=== PATIENT | male | born 1960 | race Caucasian/White ===

== ENCOUNTER 2017-05-27 11:53 | Day surgery (SDC) | payer OTHER ==
[2017-05-27] MEDS ORDERED: PROPOFOL 20 ML ×2 (13:01→13:55)
[2017-05-27] MEDS ORDERED: ATROPINE 1 MG/10 ML SYRINGE ×2 (15:44)
== END 2017-05-27 14:42 | disposition home or self-care (01) ==
LOC: GIL 11:53
DX: D12.5 Benign neoplasm of sigmoid colon (principal); K64.8 Other hemorrhoids; I10 Essential (primary) hypertension; E78.5 Hyperlipidemia, unspecified
CPT/HCPCS: 45380; 88305

== ENCOUNTER 2017-07-29 05:20 | Inpatient (IN) | payer OTHER ==
[2017-07-29] MEDS: CEFAZOLIN 2 GM/50 ML (PMX) 50 ML IVPB (06:00)
[2017-07-29] MEDS: SOD CHLORIDE 0.9% 1,000 ML IV ×3 (06:00→22:27)
[2017-07-29] MEDS: hydrALAzine 20 MG INJ IV (06:39)
[2017-07-29] MEDS ORDERED: SUCCINYLCHOLINE CHLORIDE 100 MG/5 ML SYG IV (07:00)
[2017-07-29] MEDS ORDERED: CEFAZOLIN 1 GM INJ (07:00)
[2017-07-29 07:02] LABS: ADD MAN DIFF? NO
[2017-07-29 07:08] LABS: WHITE BLOOD COUNT 5.3 10^3/ul (4.8-10.8)
[2017-07-29 07:08] LABS: BASOPHILS % 0.4 % (0.0-2.0); EOSINOPHILS # 0.3 10^3/ul (0.0-0.5); EOSINOPHILS % 5.3 % (0.0-7.0); HEMATOCRIT 37.7 % (42.0-52.0); HEMOGLOBIN 13.1 g/dl (14.0-18.0); LYMPHOCYTES # 0.8 10^3/ul (0.8-2.9); LYMPHOCYTES % 15.2 % (15.0-51.0); MEAN CORPUSCULAR HEMOGLOBIN 30.5 pg (29.0-33.0); MEAN CORPUSCULAR HGB CONC 34.7 g/dl (32.0-37.0); MEAN CORPUSCULAR VOLUME 87.7 fl (82.0-101.0); MEAN PLATELET VOLUME 11.7 fl (7.4-10.4); MONOCYTE # 0.5 10^3/ul (0.3-0.9); MONOCYTES % 9.3 % (0.0-11.0); NEUTROPHIL # 3.6 10^3/ul (1.6-7.5); NEUTROPHILS % 68.9 % (39.0-77.0); PLATELET COUNT 190 10^3/UL (140-415); RED CELL DISTRIBUTION WIDTH 12.4 % (11.5-14.5)
[2017-07-29 07:12] LABS: PROTIME 13.3 Sec (11.9-14.9)
[2017-07-29] MEDS ORDERED: BUPIVACAINE 0.25% (MPF) 30 ML INJ (07:12)
[2017-07-29 07:13] LABS: PARTIAL THROMBOPLASTIN TIME 33.7 Sec (25.0-35.0)
[2017-07-29 07:15] LABS: ALANINE AMINOTRANSFERASE 29 IU/L (13-69); ALBUMIN/GLOBULIN RATIO 1.25; ALKALINE PHOSPHATASE 94 IU/L (42-121); ANION GAP 17 (8-16); ASPARTATE AMINO TRANSFERASE 22 IU/L (15-46); BILIRUBIN,INDIRECT 0.4 mg/dl (0-1.1); BILIRUBIN,TOTAL 0.4 mg/dl (0.2-1.3); CARBON DIOXIDE 28 mmol/L (21-31); CHLORIDE 108 mmol/L (97-110); GLUCOSE 90 mg/dl (70-220); TOTAL PROTEIN 7.2 g/dl (6.1-8.1)
[2017-07-29 07:23] LABS: BLOOD UREA NITROGEN 12 mg/dl (7-20); CREATININE 1.05 mg/dl (0.61-1.24); POTASSIUM 3.8 mmol/L (3.5-5.1); SODIUM 149 mmol/L (135-144)
[2017-07-29] MEDS ORDERED: MIDAZOLAM 1 MG/ML 2 ML INJ ×2 (08:03)
[2017-07-29] MEDS ORDERED: FENTAnyl 50 MCG/ML VIAL (08:03)
[2017-07-29] MEDS ORDERED: PROPOFOL 20 ML (08:03)
[2017-07-29] MEDS ORDERED: ROCURONIUM 50 MG INJ (08:03)
[2017-07-29] MEDS ORDERED: ROPIVACAINE 0.5 % 30 ML VIAL (08:04)
[2017-07-29] MEDS ORDERED: hydrALAzine 20 MG INJ ×2 (08:07→09:15)
[2017-07-29] MEDS ORDERED: ROPIVACAINE 0.2% 20 ML VIAL ×2 (08:20→11:09)
[2017-07-29] MEDS ORDERED: LABETALOL HCL 20MG INJ (09:15)
[2017-07-29] MEDS ORDERED: morphine SULFATE/PF (10 MG/10 ML) INJ (09:44)
[2017-07-29] MEDS ORDERED: NALBUPHINE HCL (10 MG/1 ML) INJ IV (10:00)
[2017-07-29] MEDS ORDERED: EPHEDrine SULFATE 50 MG/5 ML SYG IV (10:00)
[2017-07-29] MEDS ORDERED: ONDANSETRON 4 MG INJ IV (10:00)
[2017-07-29] MEDS ORDERED: LABETALOL HCL 20MG INJ IV (10:00)
[2017-07-29] MEDS ORDERED: hydrALAzine 20 MG INJ IV (10:00)
[2017-07-29] MEDS ORDERED: METOCLOPRAMIDE 10 MG INJ IV (10:00)
[2017-07-29] MEDS ORDERED: HYDROmorphONE (0.2 MG/ML) 10ML SYG IV ×3 (10:00)
[2017-07-29] MEDS ORDERED: HYDROmorphONE 0.5 MG/0.5 ML SYG IV (10:00)
[2017-07-29] MEDS ORDERED: MEPERIDINE 25 MG INJ IV (10:00)
[2017-07-29] MEDS ORDERED: morphine 2 MG INJ IV ×2 (10:00)
[2017-07-29] MEDS ORDERED: NALOXONE (0.4 MG/ML) INJ IV ×2 (10:00→15:30)
[2017-07-29] MEDS ORDERED: FENTAnyl 50 MCG/ML VIAL IV ×3 (10:00)
[2017-07-29] MEDS ORDERED: DIPHENHYDRAMINE 50 MG INJ IV ×2 (10:00)
[2017-07-29] MEDS ORDERED: PHENYLephrine (100 MCG/ML) 5ML SYG ×2 (10:02→10:15)
[2017-07-29] MEDS ORDERED: HETASTARCH 6% NACL 500 ML (10:03)
[2017-07-29] MEDS ORDERED: METHYLENE BLUE 1% 10 ML INJ (10:21)
[2017-07-29] MEDS ORDERED: CIPROFLOXACIN 400MG/D5W 200 ML (11:36)
[2017-07-29] MEDS ORDERED: metroNIDAZOLE 500 MG/NS (PMX) 100 ML IVPB (11:36)
[2017-07-29] MEDS ORDERED: DEXAMETHASONE 4 MG/ML 1 ML INJ (12:08)
[2017-07-29] MEDS ORDERED: ONDANSETRON 4 MG INJ (12:08)
[2017-07-29] MEDS ORDERED: SUGAMMADEX SODIUM 200 MG/2 ML VIAL IV (12:08)
[2017-07-29] MEDS ORDERED: METOCLOPRAMIDE 10 MG INJ (12:08)
[2017-07-29] MEDS: metroNIDAZOLE 500 MG/NS (PMX) 100 ML IVPB ×2 (13:42→20:42)
[2017-07-29] MEDS: CIPROFLOXACIN 400MG/D5W 200 ML IVPB (13:42)
[2017-07-29] MEDS: HEPARIN 5,000 UNIT/0.5 ML VIAL SC ×2 (14:00→22:00)
[2017-07-29] MEDS: FENTAnyl 2MCG/ML-ROPIV 0.2% 100 ML BAG EPI (14:21)
[2017-07-29 14:37] LABS: ADD MAN DIFF? NO
[2017-07-29 14:45] LABS: WHITE BLOOD COUNT 11.5 10^3/ul (4.8-10.8)
[2017-07-29 14:45] LABS: BASOPHILS % 0.3 % (0.0-2.0); EOSINOPHILS % 0.3 % (0.0-7.0); HEMATOCRIT 38.6 % (42.0-52.0); HEMOGLOBIN 13.3 g/dl (14.0-18.0); LYMPHOCYTES # 0.8 10^3/ul (0.8-2.9); LYMPHOCYTES % 7.2 % (15.0-51.0); MEAN CORPUSCULAR HEMOGLOBIN 30.7 pg (29.0-33.0); MEAN CORPUSCULAR HGB CONC 34.5 g/dl (32.0-37.0); MEAN CORPUSCULAR VOLUME 89.1 fl (82.0-101.0); MEAN PLATELET VOLUME 10.9 fl (7.4-10.4); MONOCYTE # 0.4 10^3/ul (0.3-0.9); NEUTROPHIL # 10.2 10^3/ul (1.6-7.5); NEUTROPHILS % 88.9 % (39.0-77.0); PLATELET COUNT 237 10^3/UL (140-415); RED BLOOD COUNT 4.33 10^6/ul (4.70-6.10); RED CELL DISTRIBUTION WIDTH 12.6 % (11.5-14.5)
[2017-07-29 14:58] LABS: ALANINE AMINOTRANSFERASE 34 IU/L (13-69); ALBUMIN 2.9 g/dl (3.3-4.9); ALBUMIN/GLOBULIN RATIO 1.03; ALKALINE PHOSPHATASE 78 IU/L (42-121); ANION GAP 15 (8-16); ASPARTATE AMINO TRANSFERASE 18 IU/L (15-46); BILIRUBIN,INDIRECT 0.2 mg/dl (0-1.1); BILIRUBIN,TOTAL 0.2 mg/dl (0.2-1.3); CARBON DIOXIDE 22 mmol/L (21-31); CHLORIDE 108 mmol/L (97-110); GLUCOSE 255 mg/dl (70-220); TOTAL PROTEIN 5.7 g/dl (6.1-8.1)
[2017-07-29 14:59] LABS: BLOOD UREA NITROGEN 11 mg/dl (7-20); CALCIUM 7.4 mg/dl (8.4-10.2); CREATININE 0.94 mg/dl (0.61-1.24); POTASSIUM 3.8 mmol/L (3.5-5.1); SODIUM 141 mmol/L (135-144)
[2017-07-29] MEDS: ONDANSETRON 4 MG INJ IV (17:54)
[2017-07-30] MEDS: CIPROFLOXACIN 400MG/D5W 200 ML IVPB (01:14)
[2017-07-30] MEDS: FENTAnyl 2MCG/ML-ROPIV 0.2% 100 ML BAG EPI ×3 (02:33→19:50)
[2017-07-30] MEDS: metroNIDAZOLE 500 MG/NS (PMX) 100 ML IVPB (04:40)
[2017-07-30 05:36] LABS: ADD MAN DIFF? NO
[2017-07-30 05:44] LABS: ABNORMAL IP MESSAGE 1; BASOPHILS % 0.1 % (0.0-2.0); HEMATOCRIT 34.2 % (42.0-52.0); HEMOGLOBIN 11.7 g/dl (14.0-18.0); LYMPHOCYTES # 0.4 10^3/ul (0.8-2.9); LYMPHOCYTES % 2.7 % (15.0-51.0); MEAN CORPUSCULAR HEMOGLOBIN 30.6 pg (29.0-33.0); MEAN CORPUSCULAR HGB CONC 34.2 g/dl (32.0-37.0); MEAN CORPUSCULAR VOLUME 89.5 fl (82.0-101.0); MEAN PLATELET VOLUME 11.8 fl (7.4-10.4); MONOCYTE # 0.6 10^3/ul (0.3-0.9); MONOCYTES % 4.2 % (0.0-11.0); NEUTROPHIL # 13.2 10^3/ul (1.6-7.5); NEUTROPHILS % 92.8 % (39.0-77.0); PLATELET COUNT 189 10^3/UL (140-415); POSITIVE DIFF @See below; RED BLOOD COUNT 3.82 10^6/ul (4.70-6.10); RED CELL DISTRIBUTION WIDTH 13.2 % (11.5-14.5)
[2017-07-30 05:44] LABS: WHITE BLOOD COUNT 14.2 10^3/ul (4.8-10.8)
[2017-07-30] MEDS: SOD CHLORIDE 0.9% 1,000 ML IV ×2 (06:03→18:50)
[2017-07-30 06:18] LABS: ALANINE AMINOTRANSFERASE 24 IU/L (13-69); ALBUMIN 2.9 g/dl (3.3-4.9); ALKALINE PHOSPHATASE 55 IU/L (42-121); ANION GAP 17 (8-16); ASPARTATE AMINO TRANSFERASE 27 IU/L (15-46); BILIRUBIN,INDIRECT 0.3 mg/dl (0-1.1); BILIRUBIN,TOTAL 0.3 mg/dl (0.2-1.3); BLOOD UREA NITROGEN 21 mg/dl (7-20); CALCIUM 8.1 mg/dl (8.4-10.2); CARBON DIOXIDE 22 mmol/L (21-31); CHLORIDE 110 mmol/L (97-110); CREATININE 1.42 mg/dl (0.61-1.24); GLUCOSE 123 mg/dl (70-220); POTASSIUM 4.3 mmol/L (3.5-5.1); SODIUM 145 mmol/L (135-144); TOTAL PROTEIN 5.3 g/dl (6.1-8.1)
[2017-07-30] MEDS: PIPER-TAZO 3.375 GM IV (PMX) 100 ML IVPB ×3 (09:54→22:22)
[2017-07-30] MEDS: HYDROmorphONE 0.5 MG/0.5 ML SYG IV ×2 (11:39→18:50)
[2017-07-30] MEDS: hydrALAzine 20 MG INJ IV (19:01)
[2017-07-31] MEDS: SOD CHLORIDE 0.9% 1,000 ML IV ×2 (04:12→14:50)
[2017-07-31] MEDS: FENTAnyl 2MCG/ML-ROPIV 0.2% 100 ML BAG EPI ×3 (04:13→21:35)
[2017-07-31 05:12] LABS: ADD MAN DIFF? NO
[2017-07-31 05:19] LABS: WHITE BLOOD COUNT 12.3 10^3/ul (4.8-10.8)
[2017-07-31 05:19] LABS: ABNORMAL IP MESSAGE 1; BASOPHILS % 0.2 % (0.0-2.0); HEMATOCRIT 31.2 % (42.0-52.0); HEMOGLOBIN 10.5 g/dl (14.0-18.0); LYMPHOCYTES # 0.5 10^3/ul (0.8-2.9); MEAN CORPUSCULAR HEMOGLOBIN 30.5 pg (29.0-33.0); MEAN CORPUSCULAR HGB CONC 33.7 g/dl (32.0-37.0); MEAN CORPUSCULAR VOLUME 90.7 fl (82.0-101.0); MEAN PLATELET VOLUME 11.7 fl (7.4-10.4); MONOCYTE # 0.3 10^3/ul (0.3-0.9); MONOCYTES % 2.5 % (0.0-11.0); NEUTROPHIL # 11.4 10^3/ul (1.6-7.5); PLATELET COUNT 149 10^3/UL (140-415); POSITIVE DIFF @See below; RED BLOOD COUNT 3.44 10^6/ul (4.70-6.10); RED CELL DISTRIBUTION WIDTH 13.3 % (11.5-14.5)
[2017-07-31 05:54] LABS: ANION GAP 15 (8-16); BLOOD UREA NITROGEN 19 mg/dl (7-20); CALCIUM 8.6 mg/dl (8.4-10.2); CARBON DIOXIDE 24 mmol/L (21-31); CHLORIDE 112 mmol/L (97-110); CREATININE 1.15 mg/dl (0.61-1.24); GLUCOSE 101 mg/dl (70-220); POTASSIUM 3.8 mmol/L (3.5-5.1); SODIUM 147 mmol/L (135-144)
[2017-07-31] MEDS: PIPER-TAZO 3.375 GM IV (PMX) 100 ML IVPB ×3 (06:24→21:28)
[2017-07-31] MEDS: hydrALAzine 20 MG INJ IV ×3 (08:36→18:23)
[2017-07-31] MEDS: HYDROmorphONE 0.5 MG/0.5 ML SYG IV (14:51)
[2017-07-31] MEDS: CLONIDINE 0.1 MG/24 HR PATCH TRANSDERM (18:24)
[2017-08-01] MEDS: SOD CHLORIDE 0.9% 1,000 ML IV ×2 (01:54→11:54)
[2017-08-01] MEDS: hydrALAzine 20 MG INJ IV ×5 (01:54→20:13)
[2017-08-01] MEDS: PIPER-TAZO 3.375 GM IV (PMX) 100 ML IVPB ×3 (05:17→21:37)
[2017-08-01] MEDS: FENTAnyl 2MCG/ML-ROPIV 0.2% 100 ML BAG EPI ×3 (06:33→23:56)
[2017-08-01] MEDS: CLONIDINE 0.2 MG/24 HR PATCH TRANSDERM (14:28)
[2017-08-01] MEDS: 1/2 NS + KCL 20 MEQ 1,000 ML IV (18:14)
[2017-08-02] MEDS: hydrALAzine 20 MG INJ IV ×4 (00:16→20:27)
[2017-08-02] MEDS ORDERED: ENALAPRILAT 1.25 MG INJ IV (01:30)
[2017-08-02] MEDS: ENALAPRILAT 1.25 MG INJ IV ×4 (03:10→12:12)
[2017-08-02] MEDS: 1/2 NS + KCL 20 MEQ 1,000 ML IV ×2 (03:23→05:27)
[2017-08-02] MEDS: PIPER-TAZO 3.375 GM IV (PMX) 100 ML IVPB (05:19)
[2017-08-02] MEDS ORDERED: ALBUTEROL/IPRATROPIUM (NEB) 3 ML AMP HHN (06:30)
[2017-08-02 06:48] LABS: ADD MAN DIFF? NO
[2017-08-02 06:53] LABS: WHITE BLOOD COUNT 8.4 10^3/ul (4.8-10.8)
[2017-08-02 06:53] LABS: ABNORMAL IP MESSAGE 1; BASOPHILS % 0.2 % (0.0-2.0); EOSINOPHILS # 0.2 10^3/ul (0.0-0.5); EOSINOPHILS % 2.3 % (0.0-7.0); HEMATOCRIT 32.2 % (42.0-52.0); HEMOGLOBIN 10.9 g/dl (14.0-18.0); LYMPHOCYTES # 0.4 10^3/ul (0.8-2.9); LYMPHOCYTES % 4.5 % (15.0-51.0); MEAN CORPUSCULAR HEMOGLOBIN 30.7 pg (29.0-33.0); MEAN CORPUSCULAR HGB CONC 33.9 g/dl (32.0-37.0); MEAN CORPUSCULAR VOLUME 90.7 fl (82.0-101.0); MEAN PLATELET VOLUME 10.8 fl (7.4-10.4); MONOCYTE # 0.4 10^3/ul (0.3-0.9); NEUTROPHIL # 7.4 10^3/ul (1.6-7.5); NEUTROPHILS % 87.4 % (39.0-77.0); PLATELET COUNT 192 10^3/UL (140-415); POSITIVE DIFF @See below; RED BLOOD COUNT 3.55 10^6/ul (4.70-6.10); RED CELL DISTRIBUTION WIDTH 13.3 % (11.5-14.5)
[2017-08-02 07:24] LABS: ANION GAP 14 (8-16); BLOOD UREA NITROGEN 18 mg/dl (7-20); CALCIUM 8.4 mg/dl (8.4-10.2); CARBON DIOXIDE 23 mmol/L (21-31); CHLORIDE 116 mmol/L (97-110); CREATININE 0.92 mg/dl (0.61-1.24); GLUCOSE 76 mg/dl (70-220); POTASSIUM 3.3 mmol/L (3.5-5.1); SODIUM 150 mmol/L (135-144)
[2017-08-02] MEDS: FENTAnyl 2MCG/ML-ROPIV 0.2% 100 ML BAG EPI ×2 (08:18→17:08)
[2017-08-02] MEDS: POTASSIUM CHLORIDE 100 ML IVPB (18:11)
[2017-08-02] MEDS: D5W + KCL 20 MEQ 1,000 ML IV (18:11)
[2017-08-02] MEDS: CLONIDINE 0.3 MG/24 HR PATCH TRANSDERM (18:49)
[2017-08-03] MEDS: FENTAnyl 2MCG/ML-ROPIV 0.2% 100 ML BAG EPI ×2 (02:24→11:33)
[2017-08-03] MEDS: hydrALAzine 20 MG INJ IV ×3 (02:29→21:12)
[2017-08-03] MEDS: ENALAPRILAT 1.25 MG INJ IV (05:23)
[2017-08-03] MEDS: D5W + KCL 20 MEQ 1,000 ML IV ×2 (08:18→11:40)
[2017-08-03 09:20] LABS: ADD MAN DIFF? NO
[2017-08-03 09:25] LABS: ABNORMAL IP MESSAGE 1; BASOPHILS % 0.4 % (0.0-2.0); EOSINOPHILS # 0.3 10^3/ul (0.0-0.5); EOSINOPHILS % 3.8 % (0.0-7.0); HEMATOCRIT 30.4 % (42.0-52.0); HEMOGLOBIN 10.4 g/dl (14.0-18.0); LYMPHOCYTES # 0.5 10^3/ul (0.8-2.9); LYMPHOCYTES % 6.1 % (15.0-51.0); MEAN CORPUSCULAR HEMOGLOBIN 30.7 pg (29.0-33.0); MEAN CORPUSCULAR HGB CONC 34.2 g/dl (32.0-37.0); MEAN CORPUSCULAR VOLUME 89.7 fl (82.0-101.0); MEAN PLATELET VOLUME 11.2 fl (7.4-10.4); MONOCYTE # 0.6 10^3/ul (0.3-0.9); MONOCYTES % 7.7 % (0.0-11.0); NEUTROPHIL # 6.2 10^3/ul (1.6-7.5); PLATELET COUNT 186 10^3/UL (140-415); POSITIVE DIFF @See below; RED BLOOD COUNT 3.39 10^6/ul (4.70-6.10); RED CELL DISTRIBUTION WIDTH 13.2 % (11.5-14.5)
[2017-08-03 09:25] LABS: WHITE BLOOD COUNT 7.7 10^3/ul (4.8-10.8)
[2017-08-03 09:52] LABS: ANION GAP 13 (8-16); BLOOD UREA NITROGEN 14 mg/dl (7-20); CALCIUM 8.2 mg/dl (8.4-10.2); CARBON DIOXIDE 25 mmol/L (21-31); CHLORIDE 109 mmol/L (97-110); CREATININE 0.82 mg/dl (0.61-1.24); GLUCOSE 106 mg/dl (70-220); POTASSIUM 3.5 mmol/L (3.5-5.1); SODIUM 143 mmol/L (135-144)
[2017-08-03] MEDS: METOPROLOL 25 MG TAB NGT (21:12)
[2017-08-04 05:16] LABS: ADD MAN DIFF? NO
[2017-08-04 05:19] LABS: WHITE BLOOD COUNT 6.9 10^3/ul (4.8-10.8)
[2017-08-04 05:19] LABS: BASOPHILS % 0.3 % (0.0-2.0); EOSINOPHILS # 0.3 10^3/ul (0.0-0.5); EOSINOPHILS % 4.2 % (0.0-7.0); HEMATOCRIT 29.8 % (42.0-52.0); HEMOGLOBIN 10.5 g/dl (14.0-18.0); LYMPHOCYTES # 0.7 10^3/ul (0.8-2.9); LYMPHOCYTES % 9.4 % (15.0-51.0); MEAN CORPUSCULAR HEMOGLOBIN 30.7 pg (29.0-33.0); MEAN CORPUSCULAR HGB CONC 35.2 g/dl (32.0-37.0); MEAN CORPUSCULAR VOLUME 87.1 fl (82.0-101.0); MEAN PLATELET VOLUME 10.7 fl (7.4-10.4); MONOCYTE # 0.5 10^3/ul (0.3-0.9); NEUTROPHIL # 5.3 10^3/ul (1.6-7.5); NEUTROPHILS % 77.4 % (39.0-77.0); PLATELET COUNT 192 10^3/UL (140-415); RED BLOOD COUNT 3.42 10^6/ul (4.70-6.10); RED CELL DISTRIBUTION WIDTH 12.7 % (11.5-14.5)
[2017-08-04 05:45] LABS: ANION GAP 12 (8-16); BLOOD UREA NITROGEN 12 mg/dl (7-20); CALCIUM 8.3 mg/dl (8.4-10.2); CARBON DIOXIDE 26 mmol/L (21-31); CHLORIDE 107 mmol/L (97-110); GLUCOSE 103 mg/dl (70-220); POTASSIUM 3.5 mmol/L (3.5-5.1); SODIUM 141 mmol/L (135-144)
[2017-08-04] MEDS: LOSARTAN 50 MG TAB PO (08:29)
[2017-08-04] MEDS: METOPROLOL 25 MG TAB NGT (08:29)
[2017-08-04] MEDS: NIFEdipine (XL) 60 MG TAB PO (21:04)
[2017-08-04] MEDS: morphine 2 MG INJ IV (21:04)
[2017-08-05 05:16] LABS: ADD MAN DIFF? NO
[2017-08-05 05:25] LABS: WHITE BLOOD COUNT 6.1 10^3/ul (4.8-10.8)
[2017-08-05 05:25] LABS: BASOPHILS % 0.3 % (0.0-2.0); EOSINOPHILS # 0.2 10^3/ul (0.0-0.5); EOSINOPHILS % 3.6 % (0.0-7.0); HEMATOCRIT 30.7 % (42.0-52.0); HEMOGLOBIN 10.6 g/dl (14.0-18.0); LYMPHOCYTES # 0.7 10^3/ul (0.8-2.9); LYMPHOCYTES % 11.2 % (15.0-51.0); MEAN CORPUSCULAR HEMOGLOBIN 30.5 pg (29.0-33.0); MEAN CORPUSCULAR HGB CONC 34.5 g/dl (32.0-37.0); MEAN CORPUSCULAR VOLUME 88.5 fl (82.0-101.0); MEAN PLATELET VOLUME 10.9 fl (7.4-10.4); MONOCYTE # 0.4 10^3/ul (0.3-0.9); MONOCYTES % 7.1 % (0.0-11.0); NEUTROPHIL # 4.5 10^3/ul (1.6-7.5); NEUTROPHILS % 74.8 % (39.0-77.0); PLATELET COUNT 214 10^3/UL (140-415); RED BLOOD COUNT 3.47 10^6/ul (4.70-6.10); RED CELL DISTRIBUTION WIDTH 12.6 % (11.5-14.5)
[2017-08-05 05:39] LABS: BLOOD UREA NITROGEN 13 mg/dl (7-20); CALCIUM 8.3 mg/dl (8.4-10.2); CARBON DIOXIDE 27 mmol/L (21-31); GLUCOSE 102 mg/dl (70-220)
[2017-08-05 06:08] LABS: ANION GAP 13 (8-16)
[2017-08-05 06:19] LABS: CHLORIDE 106 mmol/L (97-110); POTASSIUM 4.1 mmol/L (3.5-5.1); SODIUM 142 mmol/L (135-144)
[2017-08-05] MEDS: LOSARTAN 50 MG TAB PO (09:02)
[2017-08-05] MEDS: NIFEdipine (XL) 60 MG TAB PO (09:02)
[2017-08-05] MEDS: HYDROCODONE/APAP (5/325) TAB PO (15:16)
== END 2017-08-05 20:20 | disposition home health service (06) | DRG 330 ==
LOC: REC 05:20 → TEL 08-02 02:16 → MS1 15:17
PROC: 0DTG0ZZ Resection of Left Large Intestine, Open Approach (ICD-10-PCS; principal; 2017-07-29 08:00)
PROC: 0D1L0Z4 Bypass Transverse Colon to Cutaneous, Open Approach (ICD-10-PCS; 2017-07-29 08:00)
PROC: 0WJG4ZZ Inspection of Peritoneal Cavity, Percutaneous Endoscopic Approach (ICD-10-PCS; 2017-07-29 08:00)
DX: C18.7 Malignant neoplasm of sigmoid colon (principal); E87.0 Hyperosmolality and hypernatremia; E66.9 Obesity, unspecified; I48.0 Paroxysmal atrial fibrillation; K63.5 Polyp of colon; I10 Essential (primary) hypertension; E78.5 Hyperlipidemia, unspecified; Z68.32 Body mass index [BMI] 32.0-32.9, adult
CPT/HCPCS: 74018; 80048; 80053; 85025; 85610; 85730; 86850; 86900; 86901; 86920; 87086; 88307

== ENCOUNTER 2017-08-08 19:58 | Inpatient (IN) | payer OTHER ==
[2017-08-08] MEDS: SODIUM CHLORIDE 0.9% 1L BAG IV* (20:30)
[2017-08-08 21:00] LABS: ADD MAN DIFF? NO
[2017-08-08 21:03] LABS: WHITE BLOOD COUNT 14.3 10^3/ul (4.8-10.8)
[2017-08-08 21:04] LABS: BASOPHILS % 0.2 % (0.0-2.0); EOSINOPHILS # 0.1 10^3/ul (0.0-0.5); EOSINOPHILS % 0.4 % (0.0-7.0); HEMATOCRIT 32.2 % (42.0-52.0); HEMOGLOBIN 11.3 g/dl (14.0-18.0); LYMPHOCYTES # 0.8 10^3/ul (0.8-2.9); LYMPHOCYTES % 5.2 % (15.0-51.0); MEAN CORPUSCULAR HEMOGLOBIN 30.5 pg (29.0-33.0); MEAN CORPUSCULAR HGB CONC 35.1 g/dl (32.0-37.0); MEAN PLATELET VOLUME 10.5 fl (7.4-10.4); MONOCYTE # 0.7 10^3/ul (0.3-0.9); MONOCYTES % 4.8 % (0.0-11.0); NEUTROPHIL # 12.7 10^3/ul (1.6-7.5); NEUTROPHILS % 88.7 % (39.0-77.0); PLATELET COUNT 317 10^3/UL (140-415)
[2017-08-08 21:23] LABS: INR 1.48; PROTIME 18.2 Sec (11.9-14.9); PT RATIO 1.4
[2017-08-08 21:24] LABS: PARTIAL THROMBOPLASTIN TIME 47.9 Sec (25.0-35.0)
[2017-08-08 21:25] LABS: ALANINE AMINOTRANSFERASE 38 IU/L (13-69); ALBUMIN 3.4 g/dl (3.3-4.9); ALBUMIN/GLOBULIN RATIO 1.06; ALKALINE PHOSPHATASE 69 IU/L (42-121); ANION GAP 15 (8-16); ASPARTATE AMINO TRANSFERASE 22 IU/L (15-46); BILIRUBIN,INDIRECT 0.4 mg/dl (0-1.1); BILIRUBIN,TOTAL 0.4 mg/dl (0.2-1.3); BLOOD UREA NITROGEN 19 mg/dl (7-20); CALCIUM 8.3 mg/dl (8.4-10.2); CARBON DIOXIDE 23 mmol/L (21-31); CHLORIDE 98 mmol/L (97-110); CREATININE 1.43 mg/dl (0.61-1.24); GLUCOSE 141 mg/dl (70-220); POTASSIUM 4.4 mmol/L (3.5-5.1); SODIUM 132 mmol/L (135-144); TOTAL PROTEIN 6.6 g/dl (6.1-8.1)
[2017-08-08 21:29] LABS: LACTIC ACID 1.2 mmol/L (0.5-2.0)
[2017-08-08 21:41] LABS: TROPONIN-I < 0.012 ng/ml (0.00-0.12)
[2017-08-08] MEDS: PIPER-TAZO 3.375 GM IV (PMX) 100 ML IVPB (21:44)
[2017-08-08 21:45] LABS: ADD UMIC YES; UR ASCORBIC ACID NEGATIVE (NEGATIVE); UR BILIRUBIN (Dip) NEGATIVE (NEGATIVE); UR BLOOD (Dip) NEGATIVE (NEGATIVE); UR BUDDING YEAST FEW /HPF (NONE SEEN); UR CLARITY SLIGHTLY CLOUDY (CLEAR); UR COLOR AMBER (YELLOW); UR GLUCOSE (Dip) NEGATIVE (NEGATIVE); UR GRANULAR CAST FEW /HPF (NONE SEEN); UR KETONES (Dip) NEGATIVE (NEGATIVE); UR LEUKOCYTE ESTERASE (Dip) NEGATIVE Leu/ul (NEGATIVE); UR MUCUS FEW /HPF (NONE SEEN); UR NITRITE (Dip) NEGATIVE (NEGATIVE); UR RBC 1 /HPF (0-5); UR SPECIFIC GRAVITY (Dip) 1.021 (1.003-1.030); UR TOTAL PROTEIN (Dip) 1+ mg/dl (NEGATIVE); UR UROBILINOGEN (Dip) 1+ mg/dL (NEGATIVE); UR WBC 3 /HPF (0-5)
[2017-08-08] MEDS: VANCOMYCIN 1 GM (PMX) 250 ML IVPB (22:11)
[2017-08-08 23:38] LABS: LACTIC ACID 0.9 mmol/L (0.5-2.0)
[2017-08-09 02:51] LABS: LACTIC ACID 0.8 mmol/L (0.5-2.0)
[2017-08-09] MEDS ORDERED: ONDANSETRON 4 MG INJ IV (09:30)
[2017-08-09] MEDS ORDERED: ACETAMINOPHEN 1000MG/100ML IV 100 ML IVPB (09:30)
[2017-08-09] MEDS ORDERED: VANCOMYCIN IV PER PHARMACY XX (09:30)
[2017-08-09] MEDS: PIPER-TAZO 3.375 GM IV (PMX) 100 ML IVPB ×3 (09:51→21:54)
[2017-08-09] MEDS: D5W-0.45 NACL + KCL 20 MEQ 1,000 ML IV ×2 (09:51→19:30)
[2017-08-09] MEDS: metroNIDAZOLE 500 MG/NS (PMX) 100 ML IVPB (10:59)
[2017-08-09] MEDS: FAMOTIDINE 20 MG INJ IV ×2 (13:25→21:58)
[2017-08-09] MEDS: VANCOMYCIN 1 GM 250 ML IVPB (13:25)
[2017-08-09] MEDS: LEVALBUTEROL (NEB) 0.63 MG/3 ML AMP HHN ×3 (14:01→23:34)
[2017-08-09] MEDS: ACETAMINOPHEN 325 MG TAB PO (15:02)
[2017-08-09 21:44] LABS: LACTIC ACID 0.8 mmol/L (0.5-2.0)
[2017-08-09] MEDS: ATORVASTATIN 20 MG TAB PO (21:56)
[2017-08-09] MEDS: CASPOFUNGIN 70 MG in SOD CHLORIDE 0.9% 250 ML IVPB (23:26)
[2017-08-10] MEDS: VANCOMYCIN 1 GM 250 ML IVPB ×2 (01:02→12:44)
[2017-08-10] MEDS: D5W-0.45 NACL + KCL 20 MEQ 1,000 ML IV ×2 (03:54→16:01)
[2017-08-10 04:46] LABS: ADD MAN DIFF? NO
[2017-08-10 04:51] LABS: WHITE BLOOD COUNT 6.3 10^3/ul (4.8-10.8)
[2017-08-10 04:51] LABS: ABNORMAL IP MESSAGE 1; BASOPHILS % 0.3 % (0.0-2.0); EOSINOPHILS # 0.1 10^3/ul (0.0-0.5); EOSINOPHILS % 1.7 % (0.0-7.0); HEMATOCRIT 25.7 % (42.0-52.0); HEMOGLOBIN 8.9 g/dl (14.0-18.0); LYMPHOCYTES # 0.4 10^3/ul (0.8-2.9); LYMPHOCYTES % 5.5 % (15.0-51.0); MEAN CORPUSCULAR HEMOGLOBIN 30.4 pg (29.0-33.0); MEAN CORPUSCULAR HGB CONC 34.6 g/dl (32.0-37.0); MEAN CORPUSCULAR VOLUME 87.7 fl (82.0-101.0); MEAN PLATELET VOLUME 10.8 fl (7.4-10.4); MONOCYTE # 0.4 10^3/ul (0.3-0.9); MONOCYTES % 6.2 % (0.0-11.0); NEUTROPHIL # 5.4 10^3/ul (1.6-7.5); NEUTROPHILS % 85.8 % (39.0-77.0); PLATELET COUNT 262 10^3/UL (140-415); POSITIVE DIFF @See below; RED BLOOD COUNT 2.93 10^6/ul (4.70-6.10); RED CELL DISTRIBUTION WIDTH 13.2 % (11.5-14.5)
[2017-08-10 05:32] LABS: CREATININE 1.07 mg/dl (0.61-1.24)
[2017-08-10 05:32] LABS: BLOOD UREA NITROGEN 11 mg/dl (7-20)
[2017-08-10 05:36] LABS: ANION GAP 12 (8-16)
[2017-08-10 05:55] LABS: BLOOD UREA NITROGEN 11 mg/dl (7-20); CALCIUM 7.9 mg/dl (8.4-10.2); CARBON DIOXIDE 22 mmol/L (21-31); CHLORIDE 107 mmol/L (97-110); CREATININE 1.11 mg/dl (0.61-1.24); GLUCOSE 111 mg/dl (70-220); POTASSIUM 4.3 mmol/L (3.5-5.1); SODIUM 137 mmol/L (135-144)
[2017-08-10] MEDS: PIPER-TAZO 3.375 GM IV (PMX) 100 ML IVPB ×3 (06:24→21:48)
[2017-08-10] MEDS: FAMOTIDINE 20 MG INJ IV ×2 (08:55→21:47)
[2017-08-10] MEDS: FUROSEMIDE 20 MG TAB PO (08:55)
[2017-08-10] MEDS: ENOXAPARIN 40 MG/0.4 ML SYG SC (08:55)
[2017-08-10] MEDS: LEVALBUTEROL (NEB) 0.63 MG/3 ML AMP HHN ×3 (09:22→23:51)
[2017-08-10] MEDS: OSELTAMIVIR 75 MG CAP PO ×2 (13:36→21:48)
[2017-08-10] MEDS ORDERED: CASPOFUNGIN 50 MG in SOD CHLORIDE 0.9% 250 ML IVPB (20:30)
[2017-08-10] MEDS: ATORVASTATIN 20 MG TAB PO (21:48)
[2017-08-11] MEDS: D5W-0.45 NACL + KCL 20 MEQ 1,000 ML IV ×4 (01:47→21:30)
[2017-08-11] MEDS: VANCOMYCIN 1 GM 250 ML IVPB ×2 (01:47→15:29)
[2017-08-11] MEDS: PIPER-TAZO 3.375 GM IV (PMX) 100 ML IVPB ×3 (06:00→21:27)
[2017-08-11 06:02] LABS: ADD MAN DIFF? NO
[2017-08-11 06:05] LABS: ABNORMAL IP MESSAGE 1; BASOPHILS % 0.3 % (0.0-2.0); EOSINOPHILS # 0.2 10^3/ul (0.0-0.5); EOSINOPHILS % 4.2 % (0.0-7.0); HEMATOCRIT 25.6 % (42.0-52.0); HEMOGLOBIN 8.7 g/dl (14.0-18.0); LYMPHOCYTES # 0.5 10^3/ul (0.8-2.9); LYMPHOCYTES % 13.5 % (15.0-51.0); MEAN CORPUSCULAR HEMOGLOBIN 29.6 pg (29.0-33.0); MEAN CORPUSCULAR VOLUME 87.1 fl (82.0-101.0); MEAN PLATELET VOLUME 10.7 fl (7.4-10.4); MONOCYTE # 0.4 10^3/ul (0.3-0.9); MONOCYTES % 10.6 % (0.0-11.0); NEUTROPHIL # 2.7 10^3/ul (1.6-7.5); NEUTROPHILS % 70.9 % (39.0-77.0); PLATELET COUNT 289 10^3/UL (140-415); POSITIVE DIFF @See below; RED BLOOD COUNT 2.94 10^6/ul (4.70-6.10); RED CELL DISTRIBUTION WIDTH 13.1 % (11.5-14.5)
[2017-08-11 06:05] LABS: WHITE BLOOD COUNT 3.8 10^3/ul (4.8-10.8)
[2017-08-11 07:40] LABS: ANION GAP 12 (8-16); BLOOD UREA NITROGEN 6 mg/dl (7-20); CARBON DIOXIDE 23 mmol/L (21-31); CHLORIDE 108 mmol/L (97-110); CREATININE 1.02 mg/dl (0.61-1.24); GLUCOSE 127 mg/dl (70-220); POTASSIUM 3.9 mmol/L (3.5-5.1); SODIUM 139 mmol/L (135-144)
[2017-08-11] MEDS: LEVALBUTEROL (NEB) 0.63 MG/3 ML AMP HHN ×3 (07:47→23:25)
[2017-08-11] MEDS: OSELTAMIVIR 75 MG CAP PO ×2 (08:45→20:06)
[2017-08-11] MEDS: FUROSEMIDE 20 MG TAB PO (08:46)
[2017-08-11] MEDS: FAMOTIDINE 20 MG INJ IV ×2 (08:46→20:06)
[2017-08-11] MEDS: ENOXAPARIN 40 MG/0.4 ML SYG SC (08:57)
[2017-08-11 14:24] LABS: VANCOMYCIN,TROUGH 8.3 ug/ml (10.0-20.0)
[2017-08-11 18:54] LABS: TROPONIN-I < 0.012 ng/ml (0.00-0.12)
[2017-08-11] MEDS: ATORVASTATIN 20 MG TAB PO (20:06)
[2017-08-12] MEDS: VANCOMYCIN 1.5 GM in SOD CHLORIDE 0.9% 250 ML IVPB ×2 (00:51→12:37)
[2017-08-12 01:46] LABS: TROPONIN-I < 0.012 ng/ml (0.00-0.12)
[2017-08-12] MEDS: PIPER-TAZO 3.375 GM IV (PMX) 100 ML IVPB ×2 (05:30→17:13)
[2017-08-12] MEDS: D5W-0.45 NACL + KCL 20 MEQ 1,000 ML IV ×2 (07:30→17:14)
[2017-08-12 07:42] LABS: ADD MAN DIFF? NO
[2017-08-12 07:53] LABS: ABNORMAL IP MESSAGE 1; BASOPHILS % 0.5 % (0.0-2.0); EOSINOPHILS # 0.2 10^3/ul (0.0-0.5); EOSINOPHILS % 4.5 % (0.0-7.0); HEMATOCRIT 27.6 % (42.0-52.0); HEMOGLOBIN 9.2 g/dl (14.0-18.0); LYMPHOCYTES # 0.5 10^3/ul (0.8-2.9); LYMPHOCYTES % 12.3 % (15.0-51.0); MEAN CORPUSCULAR HEMOGLOBIN 29.5 pg (29.0-33.0); MEAN CORPUSCULAR HGB CONC 33.3 g/dl (32.0-37.0); MEAN CORPUSCULAR VOLUME 88.5 fl (82.0-101.0); MEAN PLATELET VOLUME 10.9 fl (7.4-10.4); MONOCYTE # 0.5 10^3/ul (0.3-0.9); MONOCYTES % 12.1 % (0.0-11.0); NEUTROPHIL # 2.7 10^3/ul (1.6-7.5); NEUTROPHILS % 69.1 % (39.0-77.0); PLATELET COUNT 332 10^3/UL (140-415); POSITIVE DIFF @See below; RED BLOOD COUNT 3.12 10^6/ul (4.70-6.10); RED CELL DISTRIBUTION WIDTH 13.2 % (11.5-14.5)
[2017-08-12] MEDS: LEVALBUTEROL (NEB) 0.63 MG/3 ML AMP HHN ×2 (08:05→16:49)
[2017-08-12 08:17] LABS: TROPONIN-I 0.014 ng/ml (0.00-0.12)
[2017-08-12 08:23] LABS: CHOL/HDL RATIO 5.7 RATIO; HDL CHOLESTEROL 19 mg/dl (30-78); LDL CHOLESTEROL,CALCULATED 63 mg/dl; TRIGLYCERIDES 136 mg/dl (0-149)
[2017-08-12 08:23] LABS: CHOLESTEROL 109 mg/dl (100-200)
[2017-08-12 08:40] LABS: ANION GAP 15 (8-16); BLOOD UREA NITROGEN 4 mg/dl (7-20); CALCIUM 8.3 mg/dl (8.4-10.2); CARBON DIOXIDE 25 mmol/L (21-31); CHLORIDE 104 mmol/L (97-110); CREATININE 0.98 mg/dl (0.61-1.24); GLUCOSE 108 mg/dl (70-220); POTASSIUM 4.4 mmol/L (3.5-5.1); SODIUM 140 mmol/L (135-144)
[2017-08-12] MEDS: FUROSEMIDE 20 MG TAB PO (09:08)
[2017-08-12] MEDS: OSELTAMIVIR 75 MG CAP PO ×2 (09:09→20:31)
[2017-08-12] MEDS: FAMOTIDINE 20 MG INJ IV ×2 (09:09→20:34)
[2017-08-12] MEDS: ENOXAPARIN 40 MG/0.4 ML SYG SC (09:13)
[2017-08-12] MEDS: ATORVASTATIN 20 MG TAB PO (20:31)
[2017-08-13] MEDS: VANCOMYCIN 1.5 GM in SOD CHLORIDE 0.9% 250 ML IVPB ×2 (01:45→13:34)
[2017-08-13] MEDS: D5W-0.45 NACL + KCL 20 MEQ 1,000 ML IV ×5 (03:30→23:30)
[2017-08-13 06:07] LABS: ADD MAN DIFF? NO
[2017-08-13 06:24] LABS: BASOPHILS % 0.7 % (0.0-2.0); EOSINOPHILS # 0.2 10^3/ul (0.0-0.5); EOSINOPHILS % 3.8 % (0.0-7.0); HEMATOCRIT 28.3 % (42.0-52.0); HEMOGLOBIN 9.4 g/dl (14.0-18.0); LYMPHOCYTES # 0.7 10^3/ul (0.8-2.9); LYMPHOCYTES % 14.8 % (15.0-51.0); MEAN CORPUSCULAR HEMOGLOBIN 29.4 pg (29.0-33.0); MEAN CORPUSCULAR HGB CONC 33.2 g/dl (32.0-37.0); MEAN CORPUSCULAR VOLUME 88.4 fl (82.0-101.0); MEAN PLATELET VOLUME 10.6 fl (7.4-10.4); MONOCYTE # 0.5 10^3/ul (0.3-0.9); MONOCYTES % 10.5 % (0.0-11.0); NEUTROPHILS % 67.3 % (39.0-77.0); PLATELET COUNT 373 10^3/UL (140-415); RED CELL DISTRIBUTION WIDTH 13.2 % (11.5-14.5)
[2017-08-13 06:24] LABS: WHITE BLOOD COUNT 4.5 10^3/ul (4.8-10.8)
[2017-08-13 06:52] LABS: ANION GAP 13 (8-16); BLOOD UREA NITROGEN 4 mg/dl (7-20); CALCIUM 8.6 mg/dl (8.4-10.2); CARBON DIOXIDE 27 mmol/L (21-31); CHLORIDE 105 mmol/L (97-110); CREATININE 1.04 mg/dl (0.61-1.24); GLUCOSE 122 mg/dl (70-220); POTASSIUM 4.1 mmol/L (3.5-5.1); SODIUM 141 mmol/L (135-144)
[2017-08-13] MEDS: LEVALBUTEROL (NEB) 0.63 MG/3 ML AMP HHN ×4 (09:04→23:25)
[2017-08-13] MEDS: FUROSEMIDE 20 MG TAB PO (09:14)
[2017-08-13] MEDS: OSELTAMIVIR 75 MG CAP PO ×2 (09:15→21:43)
[2017-08-13] MEDS: FAMOTIDINE 20 MG INJ IV ×2 (09:16→21:43)
[2017-08-13] MEDS: morphine 2 MG INJ IV (09:21)
[2017-08-13] MEDS: ENOXAPARIN 40 MG/0.4 ML SYG SC (09:34)
[2017-08-13 12:43] LABS: VANCOMYCIN,TROUGH 14.1 ug/ml (10.0-20.0)
[2017-08-13] MEDS: HYDROmorphONE 0.5 MG/0.5 ML SYG IV (19:46)
[2017-08-13] MEDS: ATORVASTATIN 20 MG TAB PO (21:43)
[2017-08-13] MEDS: BENAZEPRIL 10 MG TAB PO (21:44)
[2017-08-14] MEDS: VANCOMYCIN 1.5 GM in SOD CHLORIDE 0.9% 250 ML IVPB ×2 (01:17→13:12)
[2017-08-14 06:11] LABS: ADD MAN DIFF? NO
[2017-08-14 06:17] LABS: BASOPHILS % 0.5 % (0.0-2.0); EOSINOPHILS # 0.2 10^3/ul (0.0-0.5); EOSINOPHILS % 3.9 % (0.0-7.0); HEMATOCRIT 28.9 % (42.0-52.0); HEMOGLOBIN 9.5 g/dl (14.0-18.0); LYMPHOCYTES # 0.6 10^3/ul (0.8-2.9); LYMPHOCYTES % 11.3 % (15.0-51.0); MEAN CORPUSCULAR HEMOGLOBIN 29.3 pg (29.0-33.0); MEAN CORPUSCULAR HGB CONC 32.9 g/dl (32.0-37.0); MEAN CORPUSCULAR VOLUME 89.2 fl (82.0-101.0); MEAN PLATELET VOLUME 10.7 fl (7.4-10.4); MONOCYTE # 0.6 10^3/ul (0.3-0.9); NEUTROPHILS % 71.6 % (39.0-77.0); PLATELET COUNT 405 10^3/UL (140-415); RED BLOOD COUNT 3.24 10^6/ul (4.70-6.10); RED CELL DISTRIBUTION WIDTH 13.3 % (11.5-14.5)
[2017-08-14 06:17] LABS: WHITE BLOOD COUNT 5.6 10^3/ul (4.8-10.8)
[2017-08-14 06:54] LABS: ANION GAP 12 (8-16); BLOOD UREA NITROGEN 8 mg/dl (7-20); CALCIUM 8.7 mg/dl (8.4-10.2); CARBON DIOXIDE 28 mmol/L (21-31); CHLORIDE 106 mmol/L (97-110); CREATININE 0.96 mg/dl (0.61-1.24); GLUCOSE 117 mg/dl (70-220); POTASSIUM 4.1 mmol/L (3.5-5.1); SODIUM 142 mmol/L (135-144)
[2017-08-14] MEDS: LEVALBUTEROL (NEB) 0.63 MG/3 ML AMP HHN ×2 (07:39→15:54)
[2017-08-14] MEDS: FAMOTIDINE 20 MG INJ IV ×2 (08:54→21:22)
[2017-08-14] MEDS: FUROSEMIDE 20 MG TAB PO (08:55)
[2017-08-14] MEDS: OSELTAMIVIR 75 MG CAP PO ×2 (08:55→21:21)
[2017-08-14] MEDS: BENAZEPRIL 10 MG TAB PO ×2 (08:55→21:21)
[2017-08-14] MEDS: ENOXAPARIN 40 MG/0.4 ML SYG SC (09:08)
[2017-08-14] MEDS: D5W-0.45 NACL + KCL 20 MEQ 1,000 ML IV ×3 (09:30→19:30)
[2017-08-14] MEDS: AMLODIPINE 10 MG TAB PO (18:11)
[2017-08-14] MEDS: ATORVASTATIN 20 MG TAB PO (21:22)
[2017-08-15] MEDS: LEVALBUTEROL (NEB) 0.63 MG/3 ML AMP HHN ×4 (00:22→23:25)
[2017-08-15] MEDS: VANCOMYCIN 1.5 GM in SOD CHLORIDE 0.9% 250 ML IVPB ×2 (01:11→13:11)
[2017-08-15] MEDS: D5W-0.45 NACL + KCL 20 MEQ 1,000 ML IV ×4 (05:30→21:32)
[2017-08-15] MEDS: OSELTAMIVIR 75 MG CAP PO ×2 (08:13→21:27)
[2017-08-15] MEDS: FAMOTIDINE 20 MG INJ IV ×2 (08:13→21:27)
[2017-08-15] MEDS: FUROSEMIDE 20 MG TAB PO (08:13)
[2017-08-15] MEDS: BENAZEPRIL 10 MG TAB PO ×2 (08:13→21:28)
[2017-08-15] MEDS: AMLODIPINE 10 MG TAB PO (08:14)
[2017-08-15] MEDS: ENOXAPARIN 40 MG/0.4 ML SYG SC (08:27)
[2017-08-15] MEDS: ATORVASTATIN 20 MG TAB PO (21:27)
[2017-08-15] MEDS: COLCHICINE 0.6 MG TAB PO (21:27)
[2017-08-16] MEDS: VANCOMYCIN 1.5 GM in SOD CHLORIDE 0.9% 250 ML IVPB (00:36)
[2017-08-16] MEDS: D5W-0.45 NACL + KCL 20 MEQ 1,000 ML IV ×2 (01:30→17:15)
[2017-08-16 06:33] LABS: BLOOD UREA NITROGEN 9 mg/dl (7-20)
[2017-08-16] MEDS: LEVALBUTEROL (NEB) 0.63 MG/3 ML AMP HHN ×2 (07:56→16:32)
[2017-08-16] MEDS: COLCHICINE 0.6 MG TAB PO (10:04)
[2017-08-16] MEDS: FAMOTIDINE 20 MG INJ IV (10:04)
[2017-08-16] MEDS: AMLODIPINE 10 MG TAB PO (10:05)
[2017-08-16] MEDS: FUROSEMIDE 20 MG TAB PO (10:05)
[2017-08-16] MEDS: BENAZEPRIL 10 MG TAB PO (10:05)
[2017-08-16] MEDS: ENOXAPARIN 40 MG/0.4 ML SYG SC (10:12)
[2017-08-16] MEDS: DOXYCYCLINE 100 MG TAB PO (13:22)
[2017-08-16] MEDS: HYDROmorphONE 0.5 MG/0.5 ML SYG IV ×2 (17:15→19:01)
== END 2017-08-16 21:15 | disposition home or self-care (01) | DRG 862 ==
LOC: MS1 08-09 06:10 → MS2 08-10 14:55 → E/R 19:58
DX: T81.4XXA Infection following a procedure, initial encounter (principal); A41.9 Sepsis, unspecified organism; J18.9 Pneumonia, unspecified organism; R65.20 Severe sepsis without septic shock; N17.9 Acute kidney failure, unspecified; I31.3 Pericardial effusion (noninflammatory); C18.7 Malignant neoplasm of sigmoid colon; I10 Essential (primary) hypertension; I48.0 Paroxysmal atrial fibrillation; I51.7 Cardiomegaly; I51.9 Heart disease, unspecified; D72.819 Decreased white blood cell count, unspecified; E78.5 Hyperlipidemia, unspecified; R73.03 Prediabetes; J11.1 Influenza due to unidentified influenza virus with other respiratory manifestations; R94.31 Abnormal electrocardiogram [ECG] [EKG]; R07.89 Other chest pain; Y95 Nosocomial condition; Z93.3 Colostomy status
CPT/HCPCS: 36415; 71045; 74176; 76536; 80048; 80053; 80061; 80202; 81001; 82565; 83605; 84484; 84520; 85025; 85610; 85730; 87040; 87070; 87081; 87086; 87400; 93005; 93306; 94640; 94664; 96365; 96366; 96367; 99291-25

== ENCOUNTER 2017-08-19 15:30 | Outpatient (CLI) | payer OTHER | END 2017-08-19 15:59 | disposition home or self-care (01) | LOC: DCC 15:30 | DX: C18.7 Malignant neoplasm of sigmoid colon (principal); I48.0 Paroxysmal atrial fibrillation; E78.5 Hyperlipidemia, unspecified; N28.9 Disorder of kidney and ureter, unspecified; Z93.3 Colostomy status | CPT/HCPCS: G0463 ==

== ENCOUNTER 2017-09-02 14:33 | Outpatient (CLI) | payer OTHER | END 2017-09-02 15:30 | disposition home or self-care (01) | LOC: DCC 14:33 | DX: C18.7 Malignant neoplasm of sigmoid colon (principal); I48.91 Unspecified atrial fibrillation; N28.9 Disorder of kidney and ureter, unspecified; I10 Essential (primary) hypertension; E78.5 Hyperlipidemia, unspecified | CPT/HCPCS: G0463 ==

== ENCOUNTER 2018-06-03 07:37 | Day surgery (SDC) | payer OTHER ==
[2018-06-03] MEDS ORDERED: PROPOFOL 60 ML (08:41)
[2018-06-03] MEDS ORDERED: LIDOCAINE 2% (SDV) 5 ML INJ (08:42)
[2018-06-03] MEDS ORDERED: EPHEDrine SULFATE 50 MG/5 ML SYG IV (09:00)
[2018-06-03] MEDS ORDERED: ONDANSETRON 4 MG INJ IV (09:00)
[2018-06-03] MEDS ORDERED: LABETALOL HCL 20MG INJ IV (09:00)
[2018-06-03] MEDS ORDERED: FENTAnyl 50 MCG/ML VIAL IV (09:00)
[2018-06-03] MEDS ORDERED: hydrALAzine 20 MG INJ IV (09:00)
== END 2018-06-03 12:17 | disposition home or self-care (01) ==
LOC: GIL 07:37
DX: Z12.11 Encounter for screening for malignant neoplasm of colon (principal); D12.0 Benign neoplasm of cecum; Z85.038 Personal history of other malignant neoplasm of large intestine; I10 Essential (primary) hypertension
CPT/HCPCS: 45380; 88305

== ENCOUNTER 2018-10-07 22:58 | Inpatient (IN) | payer OTHER ==
[2018-10-08 00:32] LABS: URINE PH (Dip) POC 5.5 (5.0-8.5)
[2018-10-08 00:32] LABS: ADD MAN DIFF? NO; URINE BLOOD (Dip) POC Negative (NEGATIVE); URINE GLUCOSE (Dip) POC Negative (NEGATIVE); URINE KETONES (Dip) POC Trace (NEGATIVE); URINE LEUKOCYTE EST (Dip) POC Negative (NEGATIVE); URINE NITRITE (Dip) POC Negative (NEGATIVE); URINE TOTAL PROTEIN POC 1+ (NEGATIVE)
[2018-10-08 00:34] LABS: BASOPHILS % 0.2 % (0.0-2.0); EOSINOPHILS # 0.2 10^3/ul (0.0-0.5); EOSINOPHILS % 2.9 % (0.0-7.0); HEMATOCRIT 26.3 % (42.0-52.0); HEMOGLOBIN 8.4 g/dl (14.0-18.0); LYMPHOCYTES # 0.6 10^3/ul (0.8-2.9); LYMPHOCYTES % 9.6 % (15.0-51.0); MEAN CORPUSCULAR HEMOGLOBIN 27.7 pg (29.0-33.0); MEAN CORPUSCULAR HGB CONC 31.9 g/dl (32.0-37.0); MEAN CORPUSCULAR VOLUME 86.8 fl (82.0-101.0); MEAN PLATELET VOLUME 10.6 fl (7.4-10.4); MONOCYTE # 0.5 10^3/ul (0.3-0.9); MONOCYTES % 8.6 % (0.0-11.0); NEUTROPHIL # 4.9 10^3/ul (1.6-7.5); NEUTROPHILS % 77.6 % (39.0-77.0); PLATELET COUNT 281 10^3/UL (140-415); RED BLOOD COUNT 3.03 10^6/ul (4.70-6.10); RED CELL DISTRIBUTION WIDTH 13.6 % (11.5-14.5)
[2018-10-08 00:34] LABS: WHITE BLOOD COUNT 6.3 10^3/ul (4.8-10.8)
[2018-10-08 00:53] LABS: ALANINE AMINOTRANSFERASE 24 IU/L (13-69); ALBUMIN 3.1 g/dl (3.3-4.9); ALBUMIN/GLOBULIN RATIO 0.91; ALKALINE PHOSPHATASE 190 IU/L (42-121); ANION GAP 8 (5-13); ASPARTATE AMINO TRANSFERASE 28 IU/L (15-46); BILIRUBIN,INDIRECT 0.4 mg/dl (0-1.1); BILIRUBIN,TOTAL 0.4 mg/dl (0.2-1.3); BLOOD UREA NITROGEN 17 mg/dl (7-20); CALCIUM 8.7 mg/dl (8.4-10.2); CARBON DIOXIDE 23 mmol/L (21-31); CHLORIDE 103 mmol/L (97-110); CREATININE 0.69 mg/dl (0.61-1.24); Estimated GFR > 60 mL/min (>60); GLUCOSE 145 mg/dl (70-220); POTASSIUM 3.8 mmol/L (3.5-5.1); SODIUM 134 mmol/L (135-144); TOTAL PROTEIN 6.5 g/dl (6.1-8.1)
[2018-10-08 00:55] LABS: INR 1.38; PROTIME 17.1 Sec (11.9-14.9); PT RATIO 1.3
[2018-10-08 01:04] LABS: TROPONIN-I < 0.012 ng/ml (0.000-0.120)
[2018-10-08] MEDS: ALTEPLASE (CATHFLO) 2 MG INJ CATHETER (02:30)
[2018-10-08] MEDS: ACETAMINOPHEN 325 MG TAB PO ×2 (03:10→09:33)
[2018-10-08] MEDS: PIPER-TAZO 3.375 GM IV (PMX) 100 ML IVPB ×4 (03:50→18:02)
[2018-10-08] MEDS: VANCOMYCIN 1 GM (PMX) 250 ML IVPB (04:04)
[2018-10-08 04:46] LABS: LACTIC ACID 0.8 mmol/L (0.5-2.0)
[2018-10-08] MEDS ORDERED: HYDROmorphONE 0.5 MG/0.5 ML SYG IV (06:00)
[2018-10-08] MEDS ORDERED: PIPER-TAZO 3.375 GM IV (PMX) 100 ML IVPB (06:00)
[2018-10-08] MEDS ORDERED: HYDROCODONE/APAP (5/325) TAB PO (06:00)
[2018-10-08] MEDS: INSULIN ASPART [NOVOLOG] 3 ML PEN SC ×3 (06:00→17:29)
[2018-10-08] MEDS ORDERED: VANCOMYCIN IV PER PHARMACY XX (06:00)
[2018-10-08 06:05] LABS: LACTIC ACID 1.1 mmol/L (0.5-2.0)
[2018-10-08] MEDS ORDERED: GLUCOSE GEL 15 GRAM TUBE BUCCAL (06:30)
[2018-10-08] MEDS ORDERED: GLUCOSE GEL 15 GRAM TUBE PO ×2 (06:30)
[2018-10-08] MEDS ORDERED: DEXTROSE 50% 50 ML SYRINGE IV ×2 (06:30)
[2018-10-08] MEDS ORDERED: GLUCAGON 1 MG INJ IM (06:30)
[2018-10-08 07:03] LABS: PHOSPHORUS 4.1 mg/dl (2.5-4.9)
[2018-10-08 07:03] LABS: MAGNESIUM 1.8 mg/dl (1.7-2.5); TRIGLYCERIDES 96 mg/dl (0-149)
[2018-10-08 07:13] LABS: PREALBUMIN 11.4 mg/dl (17.6-36.0)
[2018-10-08 07:58] LABS: HEMOGLOBIN A1C 6.1 % (0-5.9)
[2018-10-08] MEDS: ENOXAPARIN 40 MG/0.4 ML SYG SC (08:17)
[2018-10-08] MEDS ORDERED: PENDING SANTYL ORDER FOR WOUND CARE XX (12:00)
[2018-10-08] MEDS ORDERED: TPN 1,000 ML IV (12:35)
[2018-10-08] MEDS: ACCU-CHEK XX ×3 (13:00→21:00)
[2018-10-08] MEDS ORDERED: VANCOMYCIN 1 GM 250 ML IVPB (15:00)
[2018-10-08] MEDS: VANCOMYCIN HCL 1.25 GM in SOD CHLORIDE 0.9% 250 ML IVPB (15:04)
[2018-10-08 15:30] LABS: ALANINE AMINOTRANSFERASE 21 IU/L (13-69); ALBUMIN/GLOBULIN RATIO 0.85; ALKALINE PHOSPHATASE 192 IU/L (42-121); ANION GAP 8 (5-13); ASPARTATE AMINO TRANSFERASE 26 IU/L (15-46); BILIRUBIN,INDIRECT 0.4 mg/dl (0-1.1); BILIRUBIN,TOTAL 0.4 mg/dl (0.2-1.3); BLOOD UREA NITROGEN 13 mg/dl (7-20); CALCIUM 8.3 mg/dl (8.4-10.2); CARBON DIOXIDE 24 mmol/L (21-31); CHLORIDE 105 mmol/L (97-110); CREATININE 0.69 mg/dl (0.61-1.24); Estimated GFR > 60 mL/min (>60); GLUCOSE 127 mg/dl (70-220); MAGNESIUM 1.9 mg/dl (1.7-2.5); PHOSPHORUS 4.5 mg/dl (2.5-4.9); SODIUM 137 mmol/L (135-144); TOTAL PROTEIN 6.5 g/dl (6.1-8.1); TRIGLYCERIDES 88 mg/dl (0-149)
[2018-10-08] MEDS: TPN 1,000 ML IV (18:02)
[2018-10-09] MEDS: ACCU-CHEK XX ×2 (01:00→05:00)
[2018-10-09] MEDS: PIPER-TAZO 3.375 GM IV (PMX) 100 ML IVPB ×4 (01:15→17:52)
[2018-10-09] MEDS: VANCOMYCIN HCL 1.25 GM in SOD CHLORIDE 0.9% 250 ML IVPB ×2 (01:55→13:52)
[2018-10-09] MEDS: INSULIN ASPART [NOVOLOG] 3 ML PEN SC ×4 (05:42→17:51)
[2018-10-09] MEDS: TPN 1,000 ML IV ×2 (05:45→18:38)
[2018-10-09 06:25] LABS: ADD MAN DIFF? NO
[2018-10-09 06:35] LABS: ABNORMAL IP MESSAGE 1; BASOPHILS % 0.5 % (0.0-2.0); EOSINOPHILS # 0.2 10^3/ul (0.0-0.5); EOSINOPHILS % 3.2 % (0.0-7.0); HEMATOCRIT 25.5 % (42.0-52.0); HEMOGLOBIN 8.2 g/dl (14.0-18.0); LYMPHOCYTES # 0.5 10^3/ul (0.8-2.9); LYMPHOCYTES % 7.7 % (15.0-51.0); MEAN CORPUSCULAR HEMOGLOBIN 28.1 pg (29.0-33.0); MEAN CORPUSCULAR HGB CONC 32.2 g/dl (32.0-37.0); MEAN CORPUSCULAR VOLUME 87.3 fl (82.0-101.0); MEAN PLATELET VOLUME 10.7 fl (7.4-10.4); MONOCYTE # 0.6 10^3/ul (0.3-0.9); MONOCYTES % 9.2 % (0.0-11.0); NEUTROPHIL # 4.8 10^3/ul (1.6-7.5); NEUTROPHILS % 78.9 % (39.0-77.0); PLATELET COUNT 297 10^3/UL (140-415); POSITIVE DIFF @See below; RED BLOOD COUNT 2.92 10^6/ul (4.70-6.10); RED CELL DISTRIBUTION WIDTH 13.5 % (11.5-14.5)
[2018-10-09 06:51] LABS: MAGNESIUM 1.9 mg/dl (1.7-2.5)
[2018-10-09 07:33] LABS: ANION GAP 7 (5-13); BLOOD UREA NITROGEN 12 mg/dl (7-20); CALCIUM 8.3 mg/dl (8.4-10.2); CARBON DIOXIDE 22 mmol/L (21-31); CHLORIDE 107 mmol/L (97-110); CREATININE 0.66 mg/dl (0.61-1.24); Estimated GFR > 60 mL/min (>60); GLUCOSE 122 mg/dl (70-220); POTASSIUM 3.8 mmol/L (3.5-5.1); SODIUM 136 mmol/L (135-144)
[2018-10-09] MEDS: ENOXAPARIN 40 MG/0.4 ML SYG SC (09:38)
[2018-10-09] MEDS: ACETAMINOPHEN 325 MG TAB PO (16:06)
[2018-10-10] MEDS: PIPER-TAZO 3.375 GM IV (PMX) 100 ML IVPB ×5 (00:15→23:41)
[2018-10-10 02:22] LABS: VANCOMYCIN,TROUGH 12.8 ug/ml (10.0-20.0)
[2018-10-10] MEDS: VANCOMYCIN HCL 1.25 GM in SOD CHLORIDE 0.9% 250 ML IVPB ×2 (02:40→14:10)
[2018-10-10] MEDS: INSULIN ASPART [NOVOLOG] 3 ML PEN SC ×5 (05:24→23:56)
[2018-10-10 06:01] LABS: ADD MAN DIFF? NO
[2018-10-10 06:11] LABS: ABNORMAL IP MESSAGE 1; BASOPHILS % 0.4 % (0.0-2.0); EOSINOPHILS # 0.2 10^3/ul (0.0-0.5); EOSINOPHILS % 3.4 % (0.0-7.0); LYMPHOCYTES # 0.5 10^3/ul (0.8-2.9); MEAN CORPUSCULAR HEMOGLOBIN 28.2 pg (29.0-33.0); MEAN PLATELET VOLUME 10.3 fl (7.4-10.4); MONOCYTE # 0.5 10^3/ul (0.3-0.9); NEUTROPHIL # 4.5 10^3/ul (1.6-7.5); NEUTROPHILS % 79.7 % (39.0-77.0); PLATELET COUNT 288 10^3/UL (140-415); POSITIVE DIFF @See below; RED BLOOD COUNT 2.84 10^6/ul (4.70-6.10); RED CELL DISTRIBUTION WIDTH 13.6 % (11.5-14.5)
[2018-10-10 06:11] LABS: WHITE BLOOD COUNT 5.6 10^3/ul (4.8-10.8)
[2018-10-10 06:35] LABS: ANION GAP 6 (5-13); BLOOD UREA NITROGEN 13 mg/dl (7-20); CALCIUM 8.2 mg/dl (8.4-10.2); CARBON DIOXIDE 23 mmol/L (21-31); CHLORIDE 108 mmol/L (97-110); CREATININE 0.67 mg/dl (0.61-1.24); Estimated GFR > 60 mL/min (>60); GLUCOSE 113 mg/dl (70-220); POTASSIUM 3.8 mmol/L (3.5-5.1); SODIUM 137 mmol/L (135-144)
[2018-10-10 06:41] LABS: HDL CHOLESTEROL 17 mg/dl (30-78); LDL CHOLESTEROL,CALCULATED 33 mg/dl; TRIGLYCERIDES 93 mg/dl (0-149)
[2018-10-10 06:41] LABS: CHOLESTEROL 69 mg/dl (100-200)
[2018-10-10 07:06] LABS: MAGNESIUM 1.9 mg/dl (1.7-2.5)
[2018-10-10 07:06] LABS: PHOSPHORUS 3.7 mg/dl (2.5-4.9)
[2018-10-10 07:21] LABS: B-TYPE NATRIURETIC PEPTIDE 401 PG/ML (0-125)
[2018-10-10] MEDS: TPN 1,000 ML IV ×2 (07:36→21:29)
[2018-10-10 07:45] LABS: PROCALCITONIN 0.08 ng/mL (0.00-0.10)
[2018-10-10] MEDS: LIDOCAINE 1% (MPF) 5 ML VIAL (13:12)
[2018-10-10 15:45] LABS: TOTAL PROTEIN 4.3 g/dl (6.1-8.1)
[2018-10-10 15:48] LABS: FLUID LD 607 U/L
[2018-10-10] MEDS: POTASSIUM CHLORIDE 50 ML IVPB (16:34)
[2018-10-10] MEDS: FUROSEMIDE 20 MG INJ IV (17:39)
[2018-10-10 19:27] LABS: TROPONIN-I < 0.012 ng/ml (0.000-0.120)
[2018-10-10] MEDS: ACETAMINOPHEN 325 MG TAB PO (20:41)
[2018-10-11] MEDS: VANCOMYCIN HCL 1.25 GM in SOD CHLORIDE 0.9% 250 ML IVPB ×2 (00:55→13:16)
[2018-10-11 01:48] LABS: TROPONIN-I < 0.012 ng/ml (0.000-0.120)
[2018-10-11] MEDS: PIPER-TAZO 3.375 GM IV (PMX) 100 ML IVPB ×4 (05:27→23:40)
[2018-10-11] MEDS: INSULIN ASPART [NOVOLOG] 3 ML PEN SC ×4 (05:36→23:48)
[2018-10-11 06:04] LABS: ADD MAN DIFF? NO
[2018-10-11 06:06] LABS: ABNORMAL IP MESSAGE 1; BASOPHILS % 0.3 % (0.0-2.0); EOSINOPHILS # 0.2 10^3/ul (0.0-0.5); HEMATOCRIT 24.6 % (42.0-52.0); HEMOGLOBIN 7.9 g/dl (14.0-18.0); LYMPHOCYTES # 0.5 10^3/ul (0.8-2.9); LYMPHOCYTES % 8.8 % (15.0-51.0); MEAN CORPUSCULAR HEMOGLOBIN 27.7 pg (29.0-33.0); MEAN CORPUSCULAR HGB CONC 32.1 g/dl (32.0-37.0); MEAN CORPUSCULAR VOLUME 86.3 fl (82.0-101.0); MEAN PLATELET VOLUME 10.4 fl (7.4-10.4); MONOCYTE # 0.5 10^3/ul (0.3-0.9); MONOCYTES % 8.5 % (0.0-11.0); NEUTROPHIL # 4.8 10^3/ul (1.6-7.5); NEUTROPHILS % 78.7 % (39.0-77.0); PLATELET COUNT 319 10^3/UL (140-415); POSITIVE DIFF @See below; RED BLOOD COUNT 2.85 10^6/ul (4.70-6.10); RED CELL DISTRIBUTION WIDTH 13.5 % (11.5-14.5)
[2018-10-11 06:29] LABS: MAGNESIUM 1.8 mg/dl (1.7-2.5)
[2018-10-11 06:29] LABS: PHOSPHORUS 4.1 mg/dl (2.5-4.9)
[2018-10-11 06:40] LABS: TROPONIN-I < 0.012 ng/ml (0.000-0.120)
[2018-10-11 08:09] LABS: ANION GAP 8 (5-13); BLOOD UREA NITROGEN 14 mg/dl (7-20); CALCIUM 8.6 mg/dl (8.4-10.2); CARBON DIOXIDE 23 mmol/L (21-31); CHLORIDE 107 mmol/L (97-110); CREATININE 0.69 mg/dl (0.61-1.24); Estimated GFR > 60 mL/min (>60); GLUCOSE 105 mg/dl (70-220); POTASSIUM 3.4 mmol/L (3.5-5.1); SODIUM 138 mmol/L (135-144)
[2018-10-11] MEDS: TPN 1,000 ML IV ×2 (09:00→14:54)
[2018-10-11] MEDS: POTASSIUM CHLORIDE 100 ML IVPB (09:18)
[2018-10-11] MEDS: ENOXAPARIN 40 MG/0.4 ML SYG SC (09:22)
[2018-10-12] MEDS: VANCOMYCIN HCL 1.25 GM in SOD CHLORIDE 0.9% 250 ML IVPB ×2 (01:23→12:33)
[2018-10-12] MEDS: ALTEPLASE (CATHFLO) 2 MG INJ CATHETER ×2 (01:36→04:47)
[2018-10-12] MEDS: TPN 1,000 ML IV ×3 (03:06→16:40)
[2018-10-12] MEDS: PIPER-TAZO 3.375 GM IV (PMX) 100 ML IVPB ×3 (05:37→17:35)
[2018-10-12] MEDS: INSULIN ASPART [NOVOLOG] 3 ML PEN SC ×3 (05:49→17:35)
[2018-10-12 06:23] LABS: ADD MAN DIFF? NO
[2018-10-12 06:30] LABS: ABNORMAL IP MESSAGE 1; BASOPHILS % 0.6 % (0.0-2.0); EOSINOPHILS # 0.2 10^3/ul (0.0-0.5); EOSINOPHILS % 3.6 % (0.0-7.0); HEMATOCRIT 23.7 % (42.0-52.0); HEMOGLOBIN 7.5 g/dl (14.0-18.0); LYMPHOCYTES # 0.5 10^3/ul (0.8-2.9); LYMPHOCYTES % 9.3 % (15.0-51.0); MEAN CORPUSCULAR HEMOGLOBIN 27.3 pg (29.0-33.0); MEAN CORPUSCULAR HGB CONC 31.6 g/dl (32.0-37.0); MEAN CORPUSCULAR VOLUME 86.2 fl (82.0-101.0); MEAN PLATELET VOLUME 10.7 fl (7.4-10.4); MONOCYTE # 0.4 10^3/ul (0.3-0.9); MONOCYTES % 8.2 % (0.0-11.0); NEUTROPHIL # 3.9 10^3/ul (1.6-7.5); NEUTROPHILS % 77.7 % (39.0-77.0); PLATELET COUNT 316 10^3/UL (140-415); POSITIVE DIFF @See below; RED BLOOD COUNT 2.75 10^6/ul (4.70-6.10); RED CELL DISTRIBUTION WIDTH 13.7 % (11.5-14.5)
[2018-10-12 07:14] LABS: ANION GAP 6 (5-13); BLOOD UREA NITROGEN 13 mg/dl (7-20); CALCIUM 8.3 mg/dl (8.4-10.2); CARBON DIOXIDE 24 mmol/L (21-31); CHLORIDE 107 mmol/L (97-110); CREATININE 0.65 mg/dl (0.61-1.24); Estimated GFR > 60 mL/min (>60); GLUCOSE 154 mg/dl (70-220); MAGNESIUM 1.9 mg/dl (1.7-2.5); PHOSPHORUS 3.8 mg/dl (2.5-4.9); POTASSIUM 3.7 mmol/L (3.5-5.1); SODIUM 137 mmol/L (135-144)
[2018-10-12] MEDS: ENOXAPARIN 40 MG/0.4 ML SYG SC (08:57)
[2018-10-12] MEDS: CLONIDINE 0.1 MG/24 HR PATCH TRANSDERM (20:03)
[2018-10-12] MEDS: CLONIDINE 0.2 MG/24 HR PATCH TRANSDERM (21:27)
[2018-10-13] MEDS: PIPER-TAZO 3.375 GM IV (PMX) 100 ML IVPB ×4 (00:01→18:43)
[2018-10-13] MEDS: VANCOMYCIN HCL 1.25 GM in SOD CHLORIDE 0.9% 250 ML IVPB ×3 (01:07→16:31)
[2018-10-13] MEDS: TPN 1,000 ML IV ×2 (05:50→18:43)
[2018-10-13] MEDS: INSULIN ASPART [NOVOLOG] 3 ML PEN SC ×4 (05:53→17:30)
[2018-10-13 08:47] LABS: ANION GAP 7 (5-13); BLOOD UREA NITROGEN 11 mg/dl (7-20); CALCIUM 7.7 mg/dl (8.4-10.2); CARBON DIOXIDE 22 mmol/L (21-31); CHLORIDE 106 mmol/L (97-110); CREATININE 0.83 mg/dl (0.61-1.24); Estimated GFR > 60 mL/min (>60); MAGNESIUM 2.4 mg/dl (1.7-2.5); PHOSPHORUS 4.2 mg/dl (2.5-4.9); POTASSIUM 4.6 mmol/L (3.5-5.1); SODIUM 135 mmol/L (135-144)
[2018-10-13 09:02] LABS: GLUCOSE 652 mg/dl (70-220)
[2018-10-13] MEDS: ENOXAPARIN 40 MG/0.4 ML SYG SC (09:12)
[2018-10-13 10:18] LABS: GLUCOSE 178 mg/dl (70-220)
[2018-10-13 15:19] LABS: VANCOMYCIN,TROUGH 10.7 ug/ml (10.0-20.0)
[2018-10-14] MEDS: PIPER-TAZO 3.375 GM IV (PMX) 100 ML IVPB ×5 (00:08→23:28)
[2018-10-14] MEDS: VANCOMYCIN HCL 1.25 GM in SOD CHLORIDE 0.9% 250 ML IVPB ×2 (00:48→14:17)
[2018-10-14] MEDS: INSULIN ASPART [NOVOLOG] 3 ML PEN SC ×5 (06:00→23:45)
[2018-10-14 07:03] LABS: ANION GAP 6 (5-13); BLOOD UREA NITROGEN 12 mg/dl (7-20); CALCIUM 8.8 mg/dl (8.4-10.2); CARBON DIOXIDE 25 mmol/L (21-31); CHLORIDE 108 mmol/L (97-110); CREATININE 0.68 mg/dl (0.61-1.24); Estimated GFR > 60 mL/min (>60); GLUCOSE 143 mg/dl (70-220); MAGNESIUM 2.1 mg/dl (1.7-2.5); PHOSPHORUS 3.8 mg/dl (2.5-4.9); POTASSIUM 3.7 mmol/L (3.5-5.1); SODIUM 139 mmol/L (135-144)
[2018-10-14] MEDS: ENOXAPARIN 40 MG/0.4 ML SYG SC (08:23)
[2018-10-14] MEDS: TPN 1,000 ML IV ×2 (10:56→23:47)
[2018-10-14] MEDS: CLONIDINE 0.3 MG/24 HR PATCH TRANSDERM (17:47)
[2018-10-15] MEDS: VANCOMYCIN HCL 1.25 GM in SOD CHLORIDE 0.9% 250 ML IVPB ×2 (00:55→13:32)
[2018-10-15] MEDS: PIPER-TAZO 3.375 GM IV (PMX) 100 ML IVPB ×3 (05:48→17:51)
[2018-10-15] MEDS: INSULIN ASPART [NOVOLOG] 3 ML PEN SC ×3 (05:59→17:41)
[2018-10-15 06:53] LABS: PREALBUMIN 15.1 mg/dl (17.6-36.0)
[2018-10-15] MEDS: ENOXAPARIN 40 MG/0.4 ML SYG SC (09:11)
[2018-10-15] MEDS: TPN 1,000 ML IV (13:37)
[2018-10-16] MEDS: PIPER-TAZO 3.375 GM IV (PMX) 100 ML IVPB (00:58)
[2018-10-16] MEDS: TPN 1,000 ML IV ×2 (02:14→15:02)
[2018-10-16] MEDS: INSULIN ASPART [NOVOLOG] 3 ML PEN SC ×5 (06:00→23:18)
[2018-10-16 06:54] LABS: ADD MAN DIFF? NO
[2018-10-16 06:58] LABS: WHITE BLOOD COUNT 4.4 10^3/ul (4.8-10.8)
[2018-10-16 06:58] LABS: ABNORMAL IP MESSAGE 1; BASOPHILS % 0.2 % (0.0-2.0); EOSINOPHILS # 0.2 10^3/ul (0.0-0.5); EOSINOPHILS % 4.8 % (0.0-7.0); HEMATOCRIT 33.1 % (42.0-52.0); HEMOGLOBIN 10.3 g/dl (14.0-18.0); LYMPHOCYTES # 0.5 10^3/ul (0.8-2.9); LYMPHOCYTES % 10.7 % (15.0-51.0); MEAN CORPUSCULAR HGB CONC 31.1 g/dl (32.0-37.0); MEAN CORPUSCULAR VOLUME 86.6 fl (82.0-101.0); MEAN PLATELET VOLUME 10.4 fl (7.4-10.4); MONOCYTE # 0.4 10^3/ul (0.3-0.9); MONOCYTES % 9.3 % (0.0-11.0); NEUTROPHIL # 3.3 10^3/ul (1.6-7.5); NEUTROPHILS % 74.5 % (39.0-77.0); PLATELET COUNT 326 10^3/UL (140-415); POSITIVE DIFF @See below; RED BLOOD COUNT 3.82 10^6/ul (4.70-6.10); RED CELL DISTRIBUTION WIDTH 13.9 % (11.5-14.5)
[2018-10-16] MEDS: ENOXAPARIN 40 MG/0.4 ML SYG SC (08:55)
[2018-10-17] MEDS: TPN 1,000 ML IV ×2 (03:04→18:26)
[2018-10-17] MEDS: INSULIN ASPART [NOVOLOG] 3 ML PEN SC ×3 (05:56→18:28)
[2018-10-17 06:50] LABS: ALANINE AMINOTRANSFERASE 68 IU/L (13-69); ALKALINE PHOSPHATASE 291 IU/L (42-121); ANION GAP 8 (5-13); ASPARTATE AMINO TRANSFERASE 55 IU/L (15-46); BLOOD UREA NITROGEN 17 mg/dl (7-20); CARBON DIOXIDE 25 mmol/L (21-31); CHLORIDE 106 mmol/L (97-110); CREATININE 0.65 mg/dl (0.61-1.24); Estimated GFR > 60 mL/min (>60); GLUCOSE 120 mg/dl (70-220); MAGNESIUM 2.1 mg/dl (1.7-2.5); SODIUM 139 mmol/L (135-144); TRIGLYCERIDES 89 mg/dl (0-149)
[2018-10-17] MEDS: ENOXAPARIN 40 MG/0.4 ML SYG SC (08:55)
[2018-10-18] MEDS: INSULIN ASPART [NOVOLOG] 3 ML PEN SC ×4 (00:13→17:37)
[2018-10-18] MEDS: TPN 1,000 ML IV ×3 (06:25→19:40)
[2018-10-18] MEDS: ENOXAPARIN 40 MG/0.4 ML SYG SC (10:09)
[2018-10-19] MEDS: INSULIN ASPART [NOVOLOG] 3 ML PEN SC ×2 (00:18→06:00)
[2018-10-19] MEDS: TPN 1,000 ML IV (06:13)
[2018-10-19] MEDS: ENOXAPARIN 40 MG/0.4 ML SYG SC (08:11)
[2018-10-19 11:05] LABS: ANION GAP 8 (5-13); BLOOD UREA NITROGEN 22 mg/dl (7-20); CALCIUM 9.3 mg/dl (8.4-10.2); CARBON DIOXIDE 25 mmol/L (21-31); CHLORIDE 104 mmol/L (97-110); CREATININE 0.69 mg/dl (0.61-1.24); Estimated GFR > 60 mL/min (>60); GLUCOSE 140 mg/dl (70-220); PHOSPHORUS 4.3 mg/dl (2.5-4.9); SODIUM 137 mmol/L (135-144)
== END 2018-10-19 11:55 | disposition home health service (06) | DRG 871 ==
LOC: E/R 22:58 → PP2 10-08 03:20
PROC: 0W9930Z Drainage of Right Pleural Cavity with Drainage Device, Percutaneous Approach (ICD-10-PCS; principal; 2018-10-10)
DX: A41.9 Sepsis, unspecified organism (principal); I50.33 Acute on chronic diastolic (congestive) heart failure; J18.9 Pneumonia, unspecified organism; K65.1 Peritoneal abscess; T82.898A Other specified complication of vascular prosthetic devices, implants and grafts, initial encounter; J90 Pleural effusion, not elsewhere classified; I13.0 Hypertensive heart and chronic kidney disease with heart failure and stage 1 through stage 4 chronic kidney disease, or unspecified chronic kidney disease; N17.9 Acute kidney failure, unspecified; E46 Unspecified protein-calorie malnutrition; K56.7 Ileus, unspecified; N39.0 Urinary tract infection, site not specified; I82.611 Acute embolism and thrombosis of superficial veins of right upper extremity; C18.9 Malignant neoplasm of colon, unspecified; K91.2 Postsurgical malabsorption, not elsewhere classified; R07.89 Other chest pain; E78.5 Hyperlipidemia, unspecified; G47.33 Obstructive sleep apnea (adult) (pediatric); D64.9 Anemia, unspecified; N18.9 Chronic kidney disease, unspecified; Z68.30 Body mass index [BMI] 30.0-30.9, adult; I48.0 Paroxysmal atrial fibrillation; Z93.2 Ileostomy status; E86.0 Dehydration; E87.6 Hypokalemia; Z87.891 Personal history of nicotine dependence; B95.7 Other staphylococcus as the cause of diseases classified elsewhere
CPT/HCPCS: 36415; 71045; 71250; 74176; 76604; 76942; 80048; 80053; 80061; 80202; 81003; 82947; 82962; 83036; 83605; 83615; 83735; 83880; 84075; 84100; 84134; 84145; 84155; 84450; 84460; 84478; 84484; 85025; 85610; 85730; 87040-91; 87070; 87075; 87086; 87102; 87116; 93005; 93970; 99285-25

== ENCOUNTER 2018-11-04 12:01 | Emergency (ER) | payer OTHER ==
[2018-11-04] MEDS: SILVER SULFADIAZINE 1% 25 GM CR TOP (12:58)
== END 2018-11-04 13:03 | disposition home or self-care (01) ==
LOC: E/R 12:01
DX: L23.5 Allergic contact dermatitis due to other chemical products (principal); I50.9 Heart failure, unspecified; Z85.038 Personal history of other malignant neoplasm of large intestine; Z87.891 Personal history of nicotine dependence; Z79.01 Long term (current) use of anticoagulants
CPT/HCPCS: 99282; Z7502

== ENCOUNTER 2018-12-16 17:55 | Emergency (ER) | payer OTHER | END 2018-12-16 18:26 | disposition home or self-care (01) | LOC: E/R 18:26 | DX: Z43.3 Encounter for attention to colostomy (principal); Z79.01 Long term (current) use of anticoagulants; Z85.038 Personal history of other malignant neoplasm of large intestine; Z87.891 Personal history of nicotine dependence | CPT/HCPCS: 99282; Z7502 ==

== ENCOUNTER 2019-01-04 19:46 | Inpatient (IN) | payer OTHER ==
[2019-01-04 21:57] LABS: ADD MAN DIFF? NO
[2019-01-04 21:59] LABS: BASOPHILS % 0.4 % (0.0-2.0); EOSINOPHILS # 0.1 10^3/ul (0.0-0.5); EOSINOPHILS % 0.9 % (0.0-7.0); HEMATOCRIT 39.7 % (42.0-52.0); HEMOGLOBIN 13.7 g/dl (14.0-18.0); LYMPHOCYTES % 9.1 % (15.0-51.0); MEAN CORPUSCULAR HEMOGLOBIN 27.7 pg (29.0-33.0); MEAN CORPUSCULAR HGB CONC 34.5 g/dl (32.0-37.0); MEAN CORPUSCULAR VOLUME 80.2 fl (82.0-101.0); MEAN PLATELET VOLUME 10.2 fl (7.4-10.4); MONOCYTE # 0.7 10^3/ul (0.3-0.9); MONOCYTES % 6.6 % (0.0-11.0); NEUTROPHIL # 8.9 10^3/ul (1.6-7.5); NEUTROPHILS % 81.7 % (39.0-77.0); PLATELET COUNT 273 10^3/UL (140-415); RED BLOOD COUNT 4.95 10^6/ul (4.70-6.10); RED CELL DISTRIBUTION WIDTH 16.2 % (11.5-14.5)
[2019-01-04 21:59] LABS: WHITE BLOOD COUNT 10.9 10^3/ul (4.8-10.8)
[2019-01-04 22:19] LABS: ALANINE AMINOTRANSFERASE 41 IU/L (13-69); ALBUMIN 5.2 g/dl (3.3-4.9); ALBUMIN/GLOBULIN RATIO 1.18; ALKALINE PHOSPHATASE 188 IU/L (42-121); ANION GAP 20 (5-13); ASPARTATE AMINO TRANSFERASE 37 IU/L (15-46); BILIRUBIN,INDIRECT 1.1 mg/dl (0-1.1); BILIRUBIN,TOTAL 1.1 mg/dl (0.2-1.3); BLOOD UREA NITROGEN 108 mg/dl (7-20); CALCIUM 10.7 mg/dl (8.4-10.2); CARBON DIOXIDE 36 mmol/L (21-31); CHLORIDE 66 mmol/L (97-110); Estimated GFR 6 mL/min (>60); GLUCOSE 137 mg/dl (70-220); POTASSIUM 5.7 mmol/L (3.5-5.1); SODIUM 122 mmol/L (135-144); TOTAL PROTEIN 9.6 g/dl (6.1-8.1)
[2019-01-04] MEDS: SOD CHLORIDE 0.9% 1,000 ML IV (22:28)
[2019-01-04 22:31] LABS: B-TYPE NATRIURETIC PEPTIDE 831 PG/ML (0-125); TROPONIN-I 0.059 ng/ml (0.000-0.120)
[2019-01-05] MEDS ORDERED: ACETAMINOPHEN 325 MG TAB PO (02:00)
[2019-01-05] MEDS ORDERED: ONDANSETRON 4 MG INJ IV (02:00)
[2019-01-05] MEDS: DEXTROSE 5%-0.9% NACL 1,000 ML IV (13:16)
[2019-01-05 19:25] LABS: ANION GAP 17 (5-13); BLOOD UREA NITROGEN 106 mg/dl (7-20); CALCIUM 9.9 mg/dl (8.4-10.2); CARBON DIOXIDE 34 mmol/L (21-31); CHLORIDE 72 mmol/L (97-110); CREATININE 7.68 mg/dl (0.61-1.24); Estimated GFR 7 mL/min (>60); GLUCOSE 123 mg/dl (70-220); POTASSIUM 4.4 mmol/L (3.5-5.1); SODIUM 123 mmol/L (135-144)
[2019-01-06] MEDS: DEXTROSE 5%-0.9% NACL 1,000 ML IV ×4 (00:05→21:00)
[2019-01-06 00:28] LABS: ADD UMIC NO; UR ASCORBIC ACID NEGATIVE (NEGATIVE); UR BILIRUBIN (Dip) NEGATIVE (NEGATIVE); UR BLOOD (Dip) NEGATIVE (NEGATIVE); UR CLARITY CLEAR (CLEAR); UR COLOR YELLOW (YELLOW); UR GLUCOSE (Dip) NEGATIVE (NEGATIVE); UR KETONES (Dip) NEGATIVE (NEGATIVE); UR LEUKOCYTE ESTERASE (Dip) NEGATIVE Leu/ul (NEGATIVE); UR NITRITE (Dip) NEGATIVE (NEGATIVE); UR SPECIFIC GRAVITY (Dip) 1.012 (1.003-1.030); UR TOTAL PROTEIN (Dip) NEGATIVE (NEGATIVE); UR UROBILINOGEN (Dip) NEGATIVE (NEGATIVE)
[2019-01-06 01:26] LABS: CREATININE,URINE RANDOM 138.16 mg/dl (20-370)
[2019-01-06 02:06] LABS: SODIUM,URINE RANDOM < 13 mmol/L (30-90)
[2019-01-06 05:47] LABS: ADD MAN DIFF? NO
[2019-01-06 05:52] LABS: BASOPHILS % 0.3 % (0.0-2.0); EOSINOPHILS # 0.1 10^3/ul (0.0-0.5); EOSINOPHILS % 2.2 % (0.0-7.0); HEMATOCRIT 32.1 % (42.0-52.0); LYMPHOCYTES # 0.8 10^3/ul (0.8-2.9); LYMPHOCYTES % 12.9 % (15.0-51.0); MEAN CORPUSCULAR HEMOGLOBIN 27.6 pg (29.0-33.0); MEAN CORPUSCULAR HGB CONC 34.3 g/dl (32.0-37.0); MEAN CORPUSCULAR VOLUME 80.7 fl (82.0-101.0); MEAN PLATELET VOLUME 10.7 fl (7.4-10.4); MONOCYTE # 0.6 10^3/ul (0.3-0.9); MONOCYTES % 9.1 % (0.0-11.0); NEUTROPHIL # 4.9 10^3/ul (1.6-7.5); NEUTROPHILS % 74.4 % (39.0-77.0); PLATELET COUNT 188 10^3/UL (140-415); RED BLOOD COUNT 3.98 10^6/ul (4.70-6.10); RED CELL DISTRIBUTION WIDTH 16.6 % (11.5-14.5)
[2019-01-06 05:52] LABS: WHITE BLOOD COUNT 6.5 10^3/ul (4.8-10.8)
[2019-01-06 06:24] LABS: ANION GAP 12 (5-13); BLOOD UREA NITROGEN 105 mg/dl (7-20); CALCIUM 9.5 mg/dl (8.4-10.2); CARBON DIOXIDE 34 mmol/L (21-31); CHLORIDE 77 mmol/L (97-110); CREATININE 6.17 mg/dl (0.61-1.24); Estimated GFR 9 mL/min (>60); GLUCOSE 124 mg/dl (70-220); MAGNESIUM 1.6 mg/dl (1.7-2.5); PHOSPHORUS 6.1 mg/dl (2.5-4.9); POTASSIUM 4.5 mmol/L (3.5-5.1); SODIUM 123 mmol/L (135-144)
[2019-01-06] MEDS: MAGNESIUM SULFATE 2 GM/50 ML 50 ML IVPB (08:18)
[2019-01-06] MEDS ORDERED: LACTOSE REDUCED FOOD PO (12:00)
[2019-01-06 15:31] LABS: ANION GAP 13 (5-13); BLOOD UREA NITROGEN 93 mg/dl (7-20); CALCIUM 9.2 mg/dl (8.4-10.2); CARBON DIOXIDE 31 mmol/L (21-31); CHLORIDE 79 mmol/L (97-110); Estimated GFR 12 mL/min (>60); GLUCOSE 124 mg/dl (70-220); POTASSIUM 3.5 mmol/L (3.5-5.1); SODIUM 123 mmol/L (135-144)
[2019-01-06] MEDS: ATORVASTATIN 20 MG TAB PO (20:18)
[2019-01-06] MEDS: APIXABAN 5 MG TABLET PO (20:18)
[2019-01-07] MEDS: DEXTROSE 5%-0.9% NACL 1,000 ML IV ×3 (03:36→20:08)
[2019-01-07 05:59] LABS: ADD MAN DIFF? NO; BASOPHILS % 0.3 % (0.0-2.0); EOSINOPHILS # 0.2 10^3/ul (0.0-0.5); EOSINOPHILS % 3.1 % (0.0-7.0); HEMATOCRIT 31.1 % (42.0-52.0); HEMOGLOBIN 10.5 g/dl (14.0-18.0); LYMPHOCYTES # 0.8 10^3/ul (0.8-2.9); LYMPHOCYTES % 13.9 % (15.0-51.0); MEAN CORPUSCULAR HEMOGLOBIN 27.3 pg (29.0-33.0); MEAN CORPUSCULAR HGB CONC 33.8 g/dl (32.0-37.0); MEAN PLATELET VOLUME 10.8 fl (7.4-10.4); MONOCYTE # 0.5 10^3/ul (0.3-0.9); MONOCYTES % 9.1 % (0.0-11.0); NEUTROPHIL # 4.2 10^3/ul (1.6-7.5); NEUTROPHILS % 72.4 % (39.0-77.0); PLATELET COUNT 166 10^3/UL (140-415); RED BLOOD COUNT 3.84 10^6/ul (4.70-6.10); RED CELL DISTRIBUTION WIDTH 16.1 % (11.5-14.5)
[2019-01-07 05:59] LABS: WHITE BLOOD COUNT 5.7 10^3/ul (4.8-10.8)
[2019-01-07 06:53] LABS: ANION GAP 9 (5-13); BLOOD UREA NITROGEN 74 mg/dl (7-20); CALCIUM 9.3 mg/dl (8.4-10.2); CARBON DIOXIDE 34 mmol/L (21-31); CHLORIDE 84 mmol/L (97-110); CREATININE 3.73 mg/dl (0.61-1.24); Estimated GFR 17 mL/min (>60); GLUCOSE 101 mg/dl (70-220); MAGNESIUM 1.9 mg/dl (1.7-2.5); PHOSPHORUS 4.5 mg/dl (2.5-4.9); POTASSIUM 3.1 mmol/L (3.5-5.1); SODIUM 127 mmol/L (135-144)
[2019-01-07] MEDS: FAMOTIDINE 20 MG TAB PO (08:26)
[2019-01-07] MEDS: APIXABAN 5 MG TABLET PO ×2 (08:26→20:03)
[2019-01-07] MEDS: POTASSIUM CHLORIDE (SR) 20 MEQ TAB PO (10:28)
[2019-01-07] MEDS: ATORVASTATIN 20 MG TAB PO (20:03)
[2019-01-08] MEDS: DEXTROSE 5%-0.9% NACL 1,000 ML IV ×3 (05:07→20:15)
[2019-01-08] MEDS: APIXABAN 5 MG TABLET PO ×2 (08:31→20:15)
[2019-01-08] MEDS: FAMOTIDINE 20 MG TAB PO (08:31)
[2019-01-08] MEDS: ATORVASTATIN 20 MG TAB PO (20:15)
[2019-01-09] MEDS: DEXTROSE 5%-0.9% NACL 1,000 ML IV ×4 (05:12→19:43)
[2019-01-09 05:39] LABS: ADD MAN DIFF? NO
[2019-01-09 05:54] LABS: BASOPHILS % 0.2 % (0.0-2.0); EOSINOPHILS # 0.1 10^3/ul (0.0-0.5); EOSINOPHILS % 2.9 % (0.0-7.0); HEMATOCRIT 27.1 % (42.0-52.0); HEMOGLOBIN 8.9 g/dl (14.0-18.0); LYMPHOCYTES # 0.7 10^3/ul (0.8-2.9); LYMPHOCYTES % 16.2 % (15.0-51.0); MEAN CORPUSCULAR HEMOGLOBIN 27.3 pg (29.0-33.0); MEAN CORPUSCULAR HGB CONC 32.8 g/dl (32.0-37.0); MEAN CORPUSCULAR VOLUME 83.1 fl (82.0-101.0); MEAN PLATELET VOLUME 10.8 fl (7.4-10.4); MONOCYTE # 0.3 10^3/ul (0.3-0.9); MONOCYTES % 8.4 % (0.0-11.0); NEUTROPHIL # 2.9 10^3/ul (1.6-7.5); NEUTROPHILS % 71.6 % (39.0-77.0); PLATELET COUNT 140 10^3/UL (140-415); RED BLOOD COUNT 3.26 10^6/ul (4.70-6.10); RED CELL DISTRIBUTION WIDTH 15.9 % (11.5-14.5)
[2019-01-09 05:54] LABS: WHITE BLOOD COUNT 4.1 10^3/ul (4.8-10.8)
[2019-01-09 06:11] LABS: ANION GAP 7 (5-13); BLOOD UREA NITROGEN 24 mg/dl (7-20); CALCIUM 8.8 mg/dl (8.4-10.2); CARBON DIOXIDE 29 mmol/L (21-31); CHLORIDE 98 mmol/L (97-110); CREATININE 1.67 mg/dl (0.61-1.24); Estimated GFR 42 mL/min (>60); GLUCOSE 100 mg/dl (70-220); SODIUM 134 mmol/L (135-144)
[2019-01-09] MEDS ORDERED: predniSONE 20 MG TAB ×2 (06:19→06:41)
[2019-01-09] MEDS ORDERED: METHYLPREDNISOLONE 125 MG INJ (06:24)
[2019-01-09] MEDS: APIXABAN 5 MG TABLET PO ×2 (08:37→20:19)
[2019-01-09] MEDS: POTASSIUM CHLORIDE (SR) 20 MEQ TAB PO (08:37)
[2019-01-09] MEDS: FAMOTIDINE 20 MG TAB PO (08:38)
[2019-01-09 16:17] LABS: CREATININE, RANDOM URINE 130 mg/dL (20-320); MICROALBUMIN 1.6 mg/dL; MICROALBUMIN/CREATININE RATIO 12 (<30)
[2019-01-09] MEDS: METOPROLOL 25 MG TAB PO (20:19)
[2019-01-09] MEDS: ATORVASTATIN 20 MG TAB PO (20:19)
[2019-01-10] MEDS: DEXTROSE 5%-0.9% NACL 1,000 ML IV ×2 (03:19→19:50)
[2019-01-10 05:11] LABS: ADD MAN DIFF? NO
[2019-01-10 05:15] LABS: WHITE BLOOD COUNT 3.7 10^3/ul (4.8-10.8)
[2019-01-10 05:15] LABS: BASOPHILS % 0.3 % (0.0-2.0); EOSINOPHILS # 0.1 10^3/ul (0.0-0.5); EOSINOPHILS % 3.7 % (0.0-7.0); LYMPHOCYTES # 0.6 10^3/ul (0.8-2.9); LYMPHOCYTES % 16.3 % (15.0-51.0); MEAN CORPUSCULAR HEMOGLOBIN 28.1 pg (29.0-33.0); MEAN CORPUSCULAR HGB CONC 33.3 g/dl (32.0-37.0); MEAN CORPUSCULAR VOLUME 84.4 fl (82.0-101.0); MEAN PLATELET VOLUME 10.2 fl (7.4-10.4); MONOCYTE # 0.3 10^3/ul (0.3-0.9); MONOCYTES % 8.6 % (0.0-11.0); NEUTROPHIL # 2.6 10^3/ul (1.6-7.5); NEUTROPHILS % 70.3 % (39.0-77.0); PLATELET COUNT 130 10^3/UL (140-415); RED CELL DISTRIBUTION WIDTH 15.9 % (11.5-14.5)
[2019-01-10 05:39] LABS: ANION GAP 4 (5-13); BLOOD UREA NITROGEN 18 mg/dl (7-20); CALCIUM 8.7 mg/dl (8.4-10.2); CARBON DIOXIDE 30 mmol/L (21-31); CHLORIDE 104 mmol/L (97-110); CREATININE 1.37 mg/dl (0.61-1.24); Estimated GFR 53 mL/min (>60); GLUCOSE 104 mg/dl (70-220); MAGNESIUM 1.3 mg/dl (1.7-2.5); PHOSPHORUS 1.9 mg/dl (2.5-4.9); POTASSIUM 3.2 mmol/L (3.5-5.1); SODIUM 138 mmol/L (135-144)
[2019-01-10] MEDS: POTASSIUM CHLORIDE (SR) 20 MEQ TAB PO (08:04)
[2019-01-10] MEDS: FAMOTIDINE 20 MG TAB PO (08:04)
[2019-01-10] MEDS: APIXABAN 5 MG TABLET PO ×2 (08:05→19:50)
[2019-01-10] MEDS: NEUTRA-PHOS 250 MG PACKET PO ×2 (08:05→19:51)
[2019-01-10] MEDS: METOPROLOL 25 MG TAB PO ×2 (08:06→19:51)
[2019-01-10] MEDS: MAGNESIUM SULFATE 2 GM/50 ML 50 ML IVPB (08:10)
[2019-01-10] MEDS: ATORVASTATIN 20 MG TAB PO (19:50)
[2019-01-11] MEDS: FAMOTIDINE 20 MG TAB PO (08:41)
[2019-01-11] MEDS: APIXABAN 5 MG TABLET PO ×2 (08:41→20:05)
[2019-01-11] MEDS: METOPROLOL 25 MG TAB PO ×2 (08:41→20:04)
[2019-01-11] MEDS: NEUTRA-PHOS 250 MG PACKET PO ×2 (08:41→20:05)
[2019-01-11 09:28] LABS: ANION GAP 6 (5-13); BLOOD UREA NITROGEN 17 mg/dl (7-20); CALCIUM 9.1 mg/dl (8.4-10.2); CARBON DIOXIDE 30 mmol/L (21-31); CHLORIDE 102 mmol/L (97-110); CREATININE 1.61 mg/dl (0.61-1.24); Estimated GFR 44 mL/min (>60); GLUCOSE 96 mg/dl (70-220); POTASSIUM 3.4 mmol/L (3.5-5.1); SODIUM 138 mmol/L (135-144)
[2019-01-11 12:09] LABS: PHOSPHORUS 2.1 mg/dl (2.5-4.9)
[2019-01-11 12:09] LABS: MAGNESIUM 1.7 mg/dl (1.7-2.5)
[2019-01-11] MEDS: POTASSIUM CHLORIDE (SR) 20 MEQ TAB PO (18:29)
[2019-01-11] MEDS: MAGNESIUM SULFATE 2 GM/50 ML 50 ML IVPB (18:30)
[2019-01-11] MEDS ORDERED: METOPROLOL 25 MG TAB (20:00)
[2019-01-11] MEDS: ATORVASTATIN 20 MG TAB PO (20:04)
[2019-01-12 05:52] LABS: ADD MAN DIFF? NO
[2019-01-12 06:04] LABS: WHITE BLOOD COUNT 4.7 10^3/ul (4.8-10.8)
[2019-01-12 06:04] LABS: BASOPHILS % 0.4 % (0.0-2.0); EOSINOPHILS # 0.2 10^3/ul (0.0-0.5); EOSINOPHILS % 3.2 % (0.0-7.0); HEMATOCRIT 25.3 % (42.0-52.0); HEMOGLOBIN 8.3 g/dl (14.0-18.0); LYMPHOCYTES # 0.9 10^3/ul (0.8-2.9); MEAN CORPUSCULAR HEMOGLOBIN 28.1 pg (29.0-33.0); MEAN CORPUSCULAR HGB CONC 32.8 g/dl (32.0-37.0); MEAN CORPUSCULAR VOLUME 85.8 fl (82.0-101.0); MEAN PLATELET VOLUME 10.2 fl (7.4-10.4); MONOCYTE # 0.4 10^3/ul (0.3-0.9); MONOCYTES % 8.8 % (0.0-11.0); NEUTROPHIL # 3.2 10^3/ul (1.6-7.5); PLATELET COUNT 155 10^3/UL (140-415); RED BLOOD COUNT 2.95 10^6/ul (4.70-6.10); RED CELL DISTRIBUTION WIDTH 16.7 % (11.5-14.5)
[2019-01-12 06:26] LABS: ANION GAP 4 (5-13); BLOOD UREA NITROGEN 23 mg/dl (7-20); CALCIUM 8.8 mg/dl (8.4-10.2); CARBON DIOXIDE 30 mmol/L (21-31); CHLORIDE 103 mmol/L (97-110); CREATININE 1.63 mg/dl (0.61-1.24); Estimated GFR 43 mL/min (>60); GLUCOSE 82 mg/dl (70-220); MAGNESIUM 1.8 mg/dl (1.7-2.5); PHOSPHORUS 2.3 mg/dl (2.5-4.9); POTASSIUM 4.2 mmol/L (3.5-5.1); SODIUM 137 mmol/L (135-144)
[2019-01-12] MEDS: APIXABAN 5 MG TABLET PO ×2 (09:04→20:08)
[2019-01-12] MEDS: NEUTRA-PHOS 250 MG PACKET PO ×2 (09:08→20:08)
[2019-01-12] MEDS: METOPROLOL 25 MG TAB PO ×2 (09:08→20:08)
[2019-01-12] MEDS: FAMOTIDINE 20 MG TAB PO (09:08)
[2019-01-12] MEDS: ATORVASTATIN 20 MG TAB PO (20:08)
[2019-01-13 05:39] LABS: ADD MAN DIFF? NO
[2019-01-13 05:46] LABS: WHITE BLOOD COUNT 4.1 10^3/ul (4.8-10.8)
[2019-01-13 05:46] LABS: BASOPHILS % 0.5 % (0.0-2.0); EOSINOPHILS # 0.1 10^3/ul (0.0-0.5); EOSINOPHILS % 3.4 % (0.0-7.0); HEMATOCRIT 27.3 % (42.0-52.0); HEMOGLOBIN 8.9 g/dl (14.0-18.0); LYMPHOCYTES # 0.8 10^3/ul (0.8-2.9); LYMPHOCYTES % 18.9 % (15.0-51.0); MEAN CORPUSCULAR HEMOGLOBIN 27.6 pg (29.0-33.0); MEAN CORPUSCULAR HGB CONC 32.6 g/dl (32.0-37.0); MEAN CORPUSCULAR VOLUME 84.8 fl (82.0-101.0); MEAN PLATELET VOLUME 10.1 fl (7.4-10.4); MONOCYTE # 0.4 10^3/ul (0.3-0.9); NEUTROPHIL # 2.7 10^3/ul (1.6-7.5); NEUTROPHILS % 66.5 % (39.0-77.0); PLATELET COUNT 167 10^3/UL (140-415); RED BLOOD COUNT 3.22 10^6/ul (4.70-6.10); RED CELL DISTRIBUTION WIDTH 17.2 % (11.5-14.5)
[2019-01-13 06:14] LABS: ANION GAP 4 (5-13); BLOOD UREA NITROGEN 27 mg/dl (7-20); CALCIUM 9.1 mg/dl (8.4-10.2); CARBON DIOXIDE 32 mmol/L (21-31); CHLORIDE 101 mmol/L (97-110); CREATININE 1.83 mg/dl (0.61-1.24); Estimated GFR 38 mL/min (>60); GLUCOSE 85 mg/dl (70-220); MAGNESIUM 1.6 mg/dl (1.7-2.5); PHOSPHORUS 2.6 mg/dl (2.5-4.9); POTASSIUM 4.1 mmol/L (3.5-5.1); SODIUM 137 mmol/L (135-144)
[2019-01-13] MEDS: FAMOTIDINE 20 MG TAB PO (08:14)
[2019-01-13] MEDS: APIXABAN 5 MG TABLET PO ×2 (08:14→20:23)
[2019-01-13] MEDS: NEUTRA-PHOS 250 MG PACKET PO ×2 (08:14→20:23)
[2019-01-13] MEDS: METOPROLOL 25 MG TAB PO ×2 (08:15→20:22)
[2019-01-13] MEDS: SOD CHLORIDE 0.9% 1,000 ML IV (08:53)
[2019-01-13] MEDS: MAGNESIUM SULFATE 2 GM/50 ML 50 ML IVPB (08:58)
[2019-01-13] MEDS: MAGNESIUM SULFATE 1 GM/D5W 100 ML IVPB (11:51)
[2019-01-13] MEDS: ATORVASTATIN 20 MG TAB PO (20:23)
[2019-01-14] MEDS: SOD CHLORIDE 0.9% 1,000 ML IV ×3 (00:44→22:06)
[2019-01-14 06:00] LABS: ANION GAP 4 (5-13); BLOOD UREA NITROGEN 23 mg/dl (7-20); CALCIUM 8.7 mg/dl (8.4-10.2); CARBON DIOXIDE 31 mmol/L (21-31); CHLORIDE 103 mmol/L (97-110); CREATININE 1.58 mg/dl (0.61-1.24); Estimated GFR 45 mL/min (>60); GLUCOSE 86 mg/dl (70-220); POTASSIUM 3.8 mmol/L (3.5-5.1); SODIUM 138 mmol/L (135-144)
[2019-01-14 06:35] LABS: MAGNESIUM 2.1 mg/dl (1.7-2.5)
[2019-01-14] MEDS: NEUTRA-PHOS 250 MG PACKET PO ×2 (08:58→21:59)
[2019-01-14] MEDS: APIXABAN 5 MG TABLET PO ×2 (08:58→21:59)
[2019-01-14] MEDS: METOPROLOL 25 MG TAB PO ×2 (08:59→21:00)
[2019-01-14] MEDS: FAMOTIDINE 20 MG TAB PO (08:59)
[2019-01-14] MEDS: ATORVASTATIN 20 MG TAB PO (21:58)
[2019-01-15 05:57] LABS: ANION GAP 5 (5-13); BLOOD UREA NITROGEN 22 mg/dl (7-20); CARBON DIOXIDE 29 mmol/L (21-31); CHLORIDE 100 mmol/L (97-110); CREATININE 1.76 mg/dl (0.61-1.24); Estimated GFR 40 mL/min (>60); GLUCOSE 88 mg/dl (70-220); POTASSIUM 3.8 mmol/L (3.5-5.1); SODIUM 134 mmol/L (135-144)
[2019-01-15] MEDS: METOPROLOL 25 MG TAB PO ×2 (09:00→21:00)
[2019-01-15] MEDS: NEUTRA-PHOS 250 MG PACKET PO ×2 (09:01→22:21)
[2019-01-15] MEDS: APIXABAN 5 MG TABLET PO ×2 (09:01→22:21)
[2019-01-15] MEDS: FAMOTIDINE 20 MG TAB PO (09:01)
[2019-01-15] MEDS: ATORVASTATIN 20 MG TAB PO (22:21)
[2019-01-16 05:59] LABS: ADD MAN DIFF? NO
[2019-01-16 06:09] LABS: BASOPHILS % 0.5 % (0.0-2.0); EOSINOPHILS # 0.1 10^3/ul (0.0-0.5); HEMATOCRIT 27.7 % (42.0-52.0); HEMOGLOBIN 8.9 g/dl (14.0-18.0); LYMPHOCYTES # 0.8 10^3/ul (0.8-2.9); LYMPHOCYTES % 19.2 % (15.0-51.0); MEAN CORPUSCULAR HEMOGLOBIN 27.7 pg (29.0-33.0); MEAN CORPUSCULAR HGB CONC 32.1 g/dl (32.0-37.0); MEAN CORPUSCULAR VOLUME 86.3 fl (82.0-101.0); MEAN PLATELET VOLUME 9.7 fl (7.4-10.4); MONOCYTE # 0.5 10^3/ul (0.3-0.9); MONOCYTES % 10.3 % (0.0-11.0); NEUTROPHIL # 2.9 10^3/ul (1.6-7.5); NEUTROPHILS % 66.1 % (39.0-77.0); PLATELET COUNT 186 10^3/UL (140-415); RED BLOOD COUNT 3.21 10^6/ul (4.70-6.10); RED CELL DISTRIBUTION WIDTH 17.7 % (11.5-14.5)
[2019-01-16 06:09] LABS: WHITE BLOOD COUNT 4.4 10^3/ul (4.8-10.8)
[2019-01-16 06:37] LABS: ANION GAP 7 (5-13); BLOOD UREA NITROGEN 24 mg/dl (7-20); CALCIUM 9.4 mg/dl (8.4-10.2); CARBON DIOXIDE 30 mmol/L (21-31); CHLORIDE 98 mmol/L (97-110); CREATININE 2.06 mg/dl (0.61-1.24); Estimated GFR 33 mL/min (>60); GLUCOSE 84 mg/dl (70-220); POTASSIUM 4.1 mmol/L (3.5-5.1); SODIUM 135 mmol/L (135-144)
[2019-01-16] MEDS: NEUTRA-PHOS 250 MG PACKET PO ×2 (08:21→20:23)
[2019-01-16] MEDS: METOPROLOL 25 MG TAB PO ×2 (08:21→20:24)
[2019-01-16] MEDS: FAMOTIDINE 20 MG TAB PO (08:21)
[2019-01-16] MEDS: APIXABAN 5 MG TABLET PO ×2 (08:21→20:22)
[2019-01-16] MEDS: ATORVASTATIN 20 MG TAB PO (20:23)
[2019-01-17 05:35] LABS: ANION GAP 7 (5-13); BLOOD UREA NITROGEN 29 mg/dl (7-20); CALCIUM 9.6 mg/dl (8.4-10.2); CARBON DIOXIDE 32 mmol/L (21-31); CHLORIDE 97 mmol/L (97-110); CREATININE 2.67 mg/dl (0.61-1.24); Estimated GFR 25 mL/min (>60); GLUCOSE 85 mg/dl (70-220); POTASSIUM 4.5 mmol/L (3.5-5.1); SODIUM 136 mmol/L (135-144)
[2019-01-17] MEDS: APIXABAN 5 MG TABLET PO (08:36)
[2019-01-17] MEDS: FAMOTIDINE 20 MG TAB PO (08:36)
[2019-01-17] MEDS: NEUTRA-PHOS 250 MG PACKET PO ×2 (08:37→20:07)
[2019-01-17] MEDS: METOPROLOL 25 MG TAB PO ×2 (08:37→20:09)
[2019-01-17] MEDS: SOD CHLORIDE 0.9% 1,000 ML IV ×2 (10:08→21:50)
[2019-01-17] MEDS: ATORVASTATIN 20 MG TAB PO (20:07)
[2019-01-17] MEDS: SOD CHLORIDE 0.9% 500 ML IV (21:02)
[2019-01-18] MEDS: SOD CHLORIDE 0.9% 1,000 ML IV ×2 (00:34→15:42)
[2019-01-18 05:32] LABS: ADD MAN DIFF? NO
[2019-01-18 05:39] LABS: WHITE BLOOD COUNT 4.3 10^3/ul (4.8-10.8)
[2019-01-18 05:39] LABS: BASOPHILS % 0.5 % (0.0-2.0); EOSINOPHILS # 0.2 10^3/ul (0.0-0.5); EOSINOPHILS % 3.5 % (0.0-7.0); HEMATOCRIT 29.7 % (42.0-52.0); HEMOGLOBIN 9.4 g/dl (14.0-18.0); LYMPHOCYTES # 0.7 10^3/ul (0.8-2.9); LYMPHOCYTES % 16.6 % (15.0-51.0); MEAN CORPUSCULAR HGB CONC 31.6 g/dl (32.0-37.0); MEAN CORPUSCULAR VOLUME 88.4 fl (82.0-101.0); MEAN PLATELET VOLUME 10.3 fl (7.4-10.4); MONOCYTE # 0.4 10^3/ul (0.3-0.9); MONOCYTES % 9.7 % (0.0-11.0); NEUTROPHILS % 68.8 % (39.0-77.0); PLATELET COUNT 207 10^3/UL (140-415); RED BLOOD COUNT 3.36 10^6/ul (4.70-6.10); RED CELL DISTRIBUTION WIDTH 18.6 % (11.5-14.5)
[2019-01-18 06:08] LABS: ANION GAP 5 (5-13); BLOOD UREA NITROGEN 32 mg/dl (7-20); CALCIUM 9.2 mg/dl (8.4-10.2); CARBON DIOXIDE 32 mmol/L (21-31); CHLORIDE 101 mmol/L (97-110); CREATININE 2.77 mg/dl (0.61-1.24); Estimated GFR 24 mL/min (>60); GLUCOSE 90 mg/dl (70-220); MAGNESIUM 1.7 mg/dl (1.7-2.5); PHOSPHORUS 4.6 mg/dl (2.5-4.9); POTASSIUM 5.1 mmol/L (3.5-5.1); SODIUM 138 mmol/L (135-144)
[2019-01-18] MEDS: FAMOTIDINE 20 MG TAB PO (08:30)
[2019-01-18] MEDS: NEUTRA-PHOS 250 MG PACKET PO ×2 (08:31→20:04)
[2019-01-18 16:35] LABS: ADD UMIC YES; UR ASCORBIC ACID 20 mg/dL (NEGATIVE); UR BILIRUBIN (Dip) NEGATIVE (NEGATIVE); UR BLOOD (Dip) NEGATIVE (NEGATIVE); UR CLARITY CLEAR (CLEAR); UR COLOR YELLOW (YELLOW); UR GLUCOSE (Dip) NEGATIVE (NEGATIVE); UR KETONES (Dip) NEGATIVE (NEGATIVE); UR LEUKOCYTE ESTERASE (Dip) NEGATIVE Leu/ul (NEGATIVE); UR MUCUS FEW /HPF (NONE SEEN); UR NITRITE (Dip) NEGATIVE (NEGATIVE); UR RBC 0 /HPF (0-5); UR SPECIFIC GRAVITY (Dip) 1.017 (1.003-1.030); UR TOTAL PROTEIN (Dip) 1+ mg/dl (NEGATIVE); UR UROBILINOGEN (Dip) NEGATIVE (NEGATIVE); UR WBC 2 /HPF (0-5)
[2019-01-18 16:44] LABS: CREATININE,URINE RANDOM 175.55 mg/dl (20-370)
[2019-01-18] MEDS: ATORVASTATIN 20 MG TAB PO (20:04)
[2019-01-19] MEDS: SOD CHLORIDE 0.9% 1,000 ML IV ×2 (01:28→15:50)
[2019-01-19 05:47] LABS: ADD MAN DIFF? NO
[2019-01-19 05:55] LABS: BASOPHILS % 0.5 % (0.0-2.0); EOSINOPHILS # 0.1 10^3/ul (0.0-0.5); EOSINOPHILS % 2.4 % (0.0-7.0); HEMATOCRIT 27.3 % (42.0-52.0); HEMOGLOBIN 8.7 g/dl (14.0-18.0); LYMPHOCYTES # 0.7 10^3/ul (0.8-2.9); LYMPHOCYTES % 17.8 % (15.0-51.0); MEAN CORPUSCULAR HEMOGLOBIN 28.7 pg (29.0-33.0); MEAN CORPUSCULAR HGB CONC 31.9 g/dl (32.0-37.0); MEAN CORPUSCULAR VOLUME 90.1 fl (82.0-101.0); MEAN PLATELET VOLUME 10.2 fl (7.4-10.4); MONOCYTE # 0.4 10^3/ul (0.3-0.9); MONOCYTES % 9.9 % (0.0-11.0); NEUTROPHIL # 2.8 10^3/ul (1.6-7.5); NEUTROPHILS % 68.4 % (39.0-77.0); PLATELET COUNT 190 10^3/UL (140-415); RED BLOOD COUNT 3.03 10^6/ul (4.70-6.10); RED CELL DISTRIBUTION WIDTH 18.4 % (11.5-14.5)
[2019-01-19 05:55] LABS: WHITE BLOOD COUNT 4.2 10^3/ul (4.8-10.8)
[2019-01-19 06:41] LABS: ANION GAP 5 (5-13); BLOOD UREA NITROGEN 27 mg/dl (7-20); CARBON DIOXIDE 30 mmol/L (21-31); CHLORIDE 102 mmol/L (97-110); CREATININE 2.11 mg/dl (0.61-1.24); Estimated GFR 32 mL/min (>60); GLUCOSE 83 mg/dl (70-220); MAGNESIUM 1.5 mg/dl (1.7-2.5); PHOSPHORUS 3.7 mg/dl (2.5-4.9); POTASSIUM 4.6 mmol/L (3.5-5.1); SODIUM 137 mmol/L (135-144)
[2019-01-19] MEDS: NEUTRA-PHOS 250 MG PACKET PO ×2 (10:06→20:07)
[2019-01-19] MEDS: FAMOTIDINE 20 MG TAB PO (10:06)
[2019-01-19] MEDS ORDERED: CIPROFLOXACIN 400MG/D5W 200 ML (10:51)
[2019-01-19] MEDS ORDERED: metroNIDAZOLE 500 MG/NS (PMX) 100 ML IVPB (10:55)
[2019-01-19] MEDS: BUPIVACAINE 0.5% (SDV) 30 ML INJ (11:14)
[2019-01-19] MEDS ORDERED: ROCURONIUM 50 MG INJ (11:26)
[2019-01-19] MEDS ORDERED: SUCCINYLCHOLINE CHLORIDE 100 MG/5 ML SYG IV (11:26)
[2019-01-19] MEDS ORDERED: PROPOFOL 20 ML (11:26)
[2019-01-19] MEDS ORDERED: LIDOCAINE 2% (SDV) 5 ML INJ (11:26)
[2019-01-19] MEDS ORDERED: GLYCOPYRROLATE 0.4 MG INJ (11:26)
[2019-01-19] MEDS ORDERED: NEOSTIGMINE 3 MG/3 ML SYRINGE (11:26)
[2019-01-19] MEDS ORDERED: MEPERIDINE 100 MG INJ (12:47)
[2019-01-19] MEDS ORDERED: ONDANSETRON 4 MG INJ ×2 (12:48→14:15)
[2019-01-19] MEDS ORDERED: BUPIVACAINE 0.5% (SDV) 30 ML INJ (12:55)
[2019-01-19] MEDS: metroNIDAZOLE 500 MG/NS (PMX) 100 ML IVPB ×2 (13:00→20:07)
[2019-01-19] MEDS ORDERED: morphine 2 MG INJ IV (13:00)
[2019-01-19] MEDS ORDERED: FENTAnyl 50 MCG/ML VIAL IV ×3 (13:30)
[2019-01-19] MEDS ORDERED: DIPHENHYDRAMINE 50 MG INJ IV (13:30)
[2019-01-19] MEDS ORDERED: METOCLOPRAMIDE 10 MG INJ IV (13:30)
[2019-01-19] MEDS ORDERED: EPHEDrine 25 MG/5 ML SYG IV (13:30)
[2019-01-19] MEDS ORDERED: hydrALAzine 20 MG INJ IV (13:30)
[2019-01-19] MEDS ORDERED: MEPERIDINE 25 MG INJ IV (13:30)
[2019-01-19] MEDS ORDERED: LABETALOL HCL 20MG INJ IV (13:30)
[2019-01-19] MEDS ORDERED: MIDAZOLAM 1 MG/ML 2 ML INJ IV (13:30)
[2019-01-19] MEDS ORDERED: HYDROmorphONE 1 MG/5 ML IV SYRINGE IV ×3 (13:30)
[2019-01-19] MEDS: SOD CHLORIDE 0.45% 1,000 ML IV ×2 (14:03→23:00)
[2019-01-19 14:15] LABS: ADD MAN DIFF? NO
[2019-01-19 14:16] LABS: WHITE BLOOD COUNT 3.9 10^3/ul (4.8-10.8)
[2019-01-19 14:16] LABS: BASOPHILS % 0.3 % (0.0-2.0); EOSINOPHILS # 0.1 10^3/ul (0.0-0.5); HEMATOCRIT 28.4 % (42.0-52.0); HEMOGLOBIN 9.1 g/dl (14.0-18.0); LYMPHOCYTES # 0.6 10^3/ul (0.8-2.9); MEAN CORPUSCULAR HEMOGLOBIN 28.4 pg (29.0-33.0); MEAN CORPUSCULAR VOLUME 88.8 fl (82.0-101.0); MEAN PLATELET VOLUME 9.4 fl (7.4-10.4); MONOCYTE # 0.5 10^3/ul (0.3-0.9); MONOCYTES % 11.5 % (0.0-11.0); NEUTROPHIL # 2.7 10^3/ul (1.6-7.5); NEUTROPHILS % 69.2 % (39.0-77.0); PLATELET COUNT 166 10^3/UL (140-415)
[2019-01-19] MEDS: ONDANSETRON 4 MG INJ IV ×2 (14:16→19:11)
[2019-01-19 14:33] LABS: ALANINE AMINOTRANSFERASE 35 IU/L (13-69); ALBUMIN 3.2 g/dl (3.3-4.9); ALBUMIN/GLOBULIN RATIO 0.96; ALKALINE PHOSPHATASE 145 IU/L (42-121); ANION GAP 7 (5-13); ASPARTATE AMINO TRANSFERASE 30 IU/L (15-46); BILIRUBIN,INDIRECT 0.8 mg/dl (0-1.1); BILIRUBIN,TOTAL 0.8 mg/dl (0.2-1.3); BLOOD UREA NITROGEN 23 mg/dl (7-20); CALCIUM 8.8 mg/dl (8.4-10.2); CARBON DIOXIDE 25 mmol/L (21-31); CHLORIDE 105 mmol/L (97-110); CREATININE 1.92 mg/dl (0.61-1.24); Estimated GFR 36 mL/min (>60); GLUCOSE 100 mg/dl (70-220); POTASSIUM 3.8 mmol/L (3.5-5.1); SODIUM 137 mmol/L (135-144); TOTAL PROTEIN 6.5 g/dl (6.1-8.1)
[2019-01-19] MEDS: MAGNESIUM SULFATE 3 GM in DEXTROSE 5% 100 ML IVPB (15:50)
[2019-01-19 17:46] LABS: CREATININE, RANDOM URINE 172 mg/dL (20-320); MICROALBUMIN 0.9 mg/dL; MICROALBUMIN/CREATININE RATIO 5 (<30)
[2019-01-19] MEDS: ACETAMINOPHEN 325 MG TAB PO (19:12)
[2019-01-19] MEDS: ATORVASTATIN 20 MG TAB PO (20:07)
[2019-01-19] MEDS: CIPROFLOXACIN 400MG/D5W 200 ML IVPB (22:46)
[2019-01-20] MEDS: ONDANSETRON 4 MG INJ IV (01:17)
[2019-01-20] MEDS: ACETAMINOPHEN 325 MG TAB PO ×3 (01:17→20:38)
[2019-01-20 05:35] LABS: ADD MAN DIFF? NO
[2019-01-20] MEDS: metroNIDAZOLE 500 MG/NS (PMX) 100 ML IVPB (05:38)
[2019-01-20 05:44] LABS: ABNORMAL IP MESSAGE 1; BASOPHILS % 0.2 % (0.0-2.0); EOSINOPHILS % 0.4 % (0.0-7.0); HEMATOCRIT 25.5 % (42.0-52.0); HEMOGLOBIN 8.4 g/dl (14.0-18.0); LYMPHOCYTES # 0.4 10^3/ul (0.8-2.9); LYMPHOCYTES % 8.7 % (15.0-51.0); MEAN CORPUSCULAR HEMOGLOBIN 29.3 pg (29.0-33.0); MEAN CORPUSCULAR HGB CONC 32.9 g/dl (32.0-37.0); MEAN CORPUSCULAR VOLUME 88.9 fl (82.0-101.0); MEAN PLATELET VOLUME 10.1 fl (7.4-10.4); MONOCYTE # 0.4 10^3/ul (0.3-0.9); MONOCYTES % 8.1 % (0.0-11.0); NEUTROPHIL # 3.7 10^3/ul (1.6-7.5); NEUTROPHILS % 81.9 % (39.0-77.0); PLATELET COUNT 168 10^3/UL (140-415); POSITIVE DIFF @See below; RED BLOOD COUNT 2.87 10^6/ul (4.70-6.10); RED CELL DISTRIBUTION WIDTH 17.7 % (11.5-14.5)
[2019-01-20 05:44] LABS: WHITE BLOOD COUNT 4.5 10^3/ul (4.8-10.8)
[2019-01-20 06:12] LABS: ALANINE AMINOTRANSFERASE 33 IU/L (13-69); ALBUMIN 3.2 g/dl (3.3-4.9); ALBUMIN/GLOBULIN RATIO 1.14; ALKALINE PHOSPHATASE 124 IU/L (42-121); ANION GAP 7 (5-13); ASPARTATE AMINO TRANSFERASE 25 IU/L (15-46); BILIRUBIN,INDIRECT 0.6 mg/dl (0-1.1); BILIRUBIN,TOTAL 0.6 mg/dl (0.2-1.3); BLOOD UREA NITROGEN 21 mg/dl (7-20); CALCIUM 8.8 mg/dl (8.4-10.2); CARBON DIOXIDE 25 mmol/L (21-31); CHLORIDE 102 mmol/L (97-110); CREATININE 1.75 mg/dl (0.61-1.24); Estimated GFR 40 mL/min (>60); GLUCOSE 107 mg/dl (70-220); POTASSIUM 4.1 mmol/L (3.5-5.1); SODIUM 134 mmol/L (135-144)
[2019-01-20] MEDS: SOD CHLORIDE 0.9% 1,000 ML IV ×2 (08:33→20:38)
[2019-01-20] MEDS: NEUTRA-PHOS 250 MG PACKET PO ×2 (09:04→20:38)
[2019-01-20] MEDS: FAMOTIDINE 20 MG TAB PO (09:04)
[2019-01-20] MEDS: CIPROFLOXACIN 400MG/D5W 200 ML IVPB (09:04)
[2019-01-20] MEDS: ATORVASTATIN 20 MG TAB PO (20:38)
[2019-01-21 06:20] LABS: ADD MAN DIFF? NO
[2019-01-21 06:27] LABS: WHITE BLOOD COUNT 4.4 10^3/ul (4.8-10.8)
[2019-01-21 06:27] LABS: ABNORMAL IP MESSAGE 1; BASOPHILS % 0.2 % (0.0-2.0); EOSINOPHILS # 0.1 10^3/ul (0.0-0.5); EOSINOPHILS % 1.6 % (0.0-7.0); HEMATOCRIT 25.9 % (42.0-52.0); HEMOGLOBIN 8.6 g/dl (14.0-18.0); LYMPHOCYTES # 0.4 10^3/ul (0.8-2.9); LYMPHOCYTES % 9.2 % (15.0-51.0); MEAN CORPUSCULAR HEMOGLOBIN 29.3 pg (29.0-33.0); MEAN CORPUSCULAR HGB CONC 33.2 g/dl (32.0-37.0); MEAN CORPUSCULAR VOLUME 88.1 fl (82.0-101.0); MEAN PLATELET VOLUME 10.5 fl (7.4-10.4); MONOCYTE # 0.3 10^3/ul (0.3-0.9); MONOCYTES % 7.8 % (0.0-11.0); NEUTROPHIL # 3.5 10^3/ul (1.6-7.5); NEUTROPHILS % 80.3 % (39.0-77.0); PLATELET COUNT 185 10^3/UL (140-415); POSITIVE DIFF @See below; RED BLOOD COUNT 2.94 10^6/ul (4.70-6.10); RED CELL DISTRIBUTION WIDTH 18.4 % (11.5-14.5)
[2019-01-21 06:34] LABS: ANION GAP 6 (5-13); BLOOD UREA NITROGEN 11 mg/dl (7-20); CALCIUM 8.6 mg/dl (8.4-10.2); CARBON DIOXIDE 25 mmol/L (21-31); CHLORIDE 104 mmol/L (97-110); Estimated GFR 52 mL/min (>60); GLUCOSE 88 mg/dl (70-220); MAGNESIUM 1.8 mg/dl (1.7-2.5); PHOSPHORUS 3.6 mg/dl (2.5-4.9); POTASSIUM 3.3 mmol/L (3.5-5.1); SODIUM 135 mmol/L (135-144)
[2019-01-21] MEDS: SOD CHLORIDE 0.9% 1,000 ML IV (09:04)
[2019-01-21] MEDS: NEUTRA-PHOS 250 MG PACKET PO ×2 (09:04→20:47)
[2019-01-21] MEDS: FAMOTIDINE 20 MG TAB PO (09:04)
[2019-01-21] MEDS: SILVER SULFADIAZINE 1% 25 GM CR TOP (13:33)
[2019-01-21] MEDS: NS + KCL 20 MEQ 1,000 ML IV ×2 (13:33→20:56)
[2019-01-21] MEDS: ATORVASTATIN 20 MG TAB PO (20:51)
[2019-01-21] MEDS: METOPROLOL 25 MG TAB PO (20:51)
[2019-01-22 05:20] LABS: ADD MAN DIFF? NO
[2019-01-22 05:31] LABS: ABNORMAL IP MESSAGE 1; BASOPHILS % 0.3 % (0.0-2.0); EOSINOPHILS # 0.1 10^3/ul (0.0-0.5); EOSINOPHILS % 3.1 % (0.0-7.0); HEMATOCRIT 22.7 % (42.0-52.0); HEMOGLOBIN 7.5 g/dl (14.0-18.0); LYMPHOCYTES # 0.6 10^3/ul (0.8-2.9); LYMPHOCYTES % 15.3 % (15.0-51.0); MEAN CORPUSCULAR HEMOGLOBIN 29.3 pg (29.0-33.0); MEAN CORPUSCULAR VOLUME 88.7 fl (82.0-101.0); MONOCYTE # 0.4 10^3/ul (0.3-0.9); MONOCYTES % 10.8 % (0.0-11.0); NEUTROPHIL # 2.5 10^3/ul (1.6-7.5); NEUTROPHILS % 69.7 % (39.0-77.0); PLATELET COUNT 167 10^3/UL (140-415); POSITIVE DIFF @See below; RED BLOOD COUNT 2.56 10^6/ul (4.70-6.10); RED CELL DISTRIBUTION WIDTH 18.4 % (11.5-14.5)
[2019-01-22 05:31] LABS: WHITE BLOOD COUNT 3.6 10^3/ul (4.8-10.8)
[2019-01-22 05:58] LABS: ANION GAP 4 (5-13); BLOOD UREA NITROGEN 7 mg/dl (7-20); CALCIUM 8.5 mg/dl (8.4-10.2); CARBON DIOXIDE 23 mmol/L (21-31); CHLORIDE 110 mmol/L (97-110); CREATININE 1.18 mg/dl (0.61-1.24); Estimated GFR > 60 mL/min (>60); GLUCOSE 83 mg/dl (70-220); POTASSIUM 3.2 mmol/L (3.5-5.1); SODIUM 137 mmol/L (135-144)
[2019-01-22] MEDS: NS + KCL 20 MEQ 1,000 ML IV ×2 (07:12→17:26)
[2019-01-22] MEDS: FAMOTIDINE 20 MG TAB PO (09:03)
[2019-01-22] MEDS: NEUTRA-PHOS 250 MG PACKET PO ×2 (09:03→20:47)
[2019-01-22] MEDS: METOPROLOL 25 MG TAB PO ×2 (09:04→20:47)
[2019-01-22] MEDS: SILVER SULFADIAZINE 1% 25 GM CR TOP (09:04)
[2019-01-22] MEDS ORDERED: POTASSIUM CHLORIDE (SR) 20 MEQ TAB PO (12:26)
[2019-01-22] MEDS: POTASSIUM CHLORIDE 20 MEQ POWDER FOR ORAL SOLN PO (12:57)
[2019-01-22] MEDS: ATORVASTATIN 20 MG TAB PO (20:47)
[2019-01-23] MEDS: NS + KCL 20 MEQ 1,000 ML IV ×3 (04:22→20:30)
[2019-01-23 05:40] LABS: ADD MAN DIFF? NO
[2019-01-23 05:44] LABS: WHITE BLOOD COUNT 3.3 10^3/ul (4.8-10.8)
[2019-01-23 05:44] LABS: BASOPHILS % 0.3 % (0.0-2.0); EOSINOPHILS # 0.1 10^3/ul (0.0-0.5); EOSINOPHILS % 3.3 % (0.0-7.0); HEMATOCRIT 23.7 % (42.0-52.0); HEMOGLOBIN 7.6 g/dl (14.0-18.0); LYMPHOCYTES # 0.6 10^3/ul (0.8-2.9); LYMPHOCYTES % 18.6 % (15.0-51.0); MEAN CORPUSCULAR HEMOGLOBIN 28.6 pg (29.0-33.0); MEAN CORPUSCULAR HGB CONC 32.1 g/dl (32.0-37.0); MEAN CORPUSCULAR VOLUME 89.1 fl (82.0-101.0); MEAN PLATELET VOLUME 10.8 fl (7.4-10.4); MONOCYTE # 0.3 10^3/ul (0.3-0.9); MONOCYTES % 9.6 % (0.0-11.0); NEUTROPHIL # 2.3 10^3/ul (1.6-7.5); NEUTROPHILS % 67.6 % (39.0-77.0); PLATELET COUNT 187 10^3/UL (140-415); RED BLOOD COUNT 2.66 10^6/ul (4.70-6.10); RED CELL DISTRIBUTION WIDTH 18.8 % (11.5-14.5)
[2019-01-23 07:11] LABS: ANION GAP 2 (5-13); BLOOD UREA NITROGEN 3 mg/dl (7-20); CALCIUM 8.3 mg/dl (8.4-10.2); CARBON DIOXIDE 22 mmol/L (21-31); CHLORIDE 114 mmol/L (97-110); CREATININE 1.02 mg/dl (0.61-1.24); Estimated GFR > 60 mL/min (>60); GLUCOSE 84 mg/dl (70-220); POTASSIUM 3.3 mmol/L (3.5-5.1); SODIUM 138 mmol/L (135-144)
[2019-01-23] MEDS: POTASSIUM CHLORIDE (SR) 20 MEQ TAB PO ×3 (08:16→09:12)
[2019-01-23] MEDS: FAMOTIDINE 20 MG TAB PO (08:16)
[2019-01-23] MEDS: METOPROLOL 25 MG TAB PO ×2 (08:16→21:11)
[2019-01-23] MEDS: SILVER SULFADIAZINE 1% 25 GM CR TOP (08:16)
[2019-01-23] MEDS ORDERED: POTASSIUM CHLORIDE 20 MEQ POWDER FOR ORAL SOLN PO (08:30)
[2019-01-23] MEDS: NEUTRA-PHOS 250 MG PACKET PO ×2 (09:00→21:12)
[2019-01-23 16:21] LABS: IMMEDIATE SPIN CROSSMATCH 1 2
[2019-01-23] MEDS: ATORVASTATIN 20 MG TAB PO (21:11)
[2019-01-24 05:32] LABS: ADD MAN DIFF? NO
[2019-01-24 05:44] LABS: BASOPHILS % 0.6 % (0.0-2.0); EOSINOPHILS # 0.1 10^3/ul (0.0-0.5); EOSINOPHILS % 3.1 % (0.0-7.0); HEMATOCRIT 28.8 % (42.0-52.0); HEMOGLOBIN 9.7 g/dl (14.0-18.0); LYMPHOCYTES # 0.7 10^3/ul (0.8-2.9); LYMPHOCYTES % 19.3 % (15.0-51.0); MEAN CORPUSCULAR HEMOGLOBIN 29.3 pg (29.0-33.0); MEAN CORPUSCULAR HGB CONC 33.7 g/dl (32.0-37.0); MEAN PLATELET VOLUME 10.1 fl (7.4-10.4); MONOCYTE # 0.3 10^3/ul (0.3-0.9); MONOCYTES % 7.8 % (0.0-11.0); NEUTROPHIL # 2.4 10^3/ul (1.6-7.5); NEUTROPHILS % 68.1 % (39.0-77.0); PLATELET COUNT 208 10^3/UL (140-415); RED BLOOD COUNT 3.31 10^6/ul (4.70-6.10); RED CELL DISTRIBUTION WIDTH 17.7 % (11.5-14.5)
[2019-01-24 05:44] LABS: WHITE BLOOD COUNT 3.6 10^3/ul (4.8-10.8)
[2019-01-24 06:04] LABS: ANION GAP 5 (5-13); BLOOD UREA NITROGEN 4 mg/dl (7-20); CALCIUM 8.5 mg/dl (8.4-10.2); CARBON DIOXIDE 21 mmol/L (21-31); CHLORIDE 112 mmol/L (97-110); CREATININE 0.99 mg/dl (0.61-1.24); Estimated GFR > 60 mL/min (>60); GLUCOSE 85 mg/dl (70-220); POTASSIUM 3.3 mmol/L (3.5-5.1); SODIUM 138 mmol/L (135-144)
[2019-01-24] MEDS ORDERED: POTASSIUM CHLORIDE (SR) 20 MEQ TAB PO (07:42)
[2019-01-24] MEDS: FAMOTIDINE 20 MG TAB PO (08:55)
[2019-01-24] MEDS: METOPROLOL 25 MG TAB PO ×2 (08:55→20:08)
[2019-01-24] MEDS: POTASSIUM CHLORIDE 20 MEQ POWDER FOR ORAL SOLN PO (08:56)
[2019-01-24] MEDS: NEUTRA-PHOS 250 MG PACKET PO ×2 (08:56→20:08)
[2019-01-24] MEDS: SILVER SULFADIAZINE 1% 25 GM CR TOP (08:56)
[2019-01-24] MEDS: ATORVASTATIN 20 MG TAB PO (20:09)
[2019-01-25 05:18] LABS: ADD MAN DIFF? NO
[2019-01-25 05:20] LABS: BASOPHILS % 0.3 % (0.0-2.0); EOSINOPHILS # 0.1 10^3/ul (0.0-0.5); EOSINOPHILS % 2.6 % (0.0-7.0); HEMATOCRIT 28.4 % (42.0-52.0); HEMOGLOBIN 9.5 g/dl (14.0-18.0); LYMPHOCYTES # 0.8 10^3/ul (0.8-2.9); LYMPHOCYTES % 20.4 % (15.0-51.0); MEAN CORPUSCULAR HEMOGLOBIN 29.1 pg (29.0-33.0); MEAN CORPUSCULAR HGB CONC 33.5 g/dl (32.0-37.0); MEAN CORPUSCULAR VOLUME 87.1 fl (82.0-101.0); MEAN PLATELET VOLUME 10.2 fl (7.4-10.4); MONOCYTE # 0.4 10^3/ul (0.3-0.9); MONOCYTES % 9.3 % (0.0-11.0); NEUTROPHIL # 2.6 10^3/ul (1.6-7.5); NEUTROPHILS % 66.1 % (39.0-77.0); PLATELET COUNT 230 10^3/UL (140-415); RED BLOOD COUNT 3.26 10^6/ul (4.70-6.10); RED CELL DISTRIBUTION WIDTH 18.2 % (11.5-14.5)
[2019-01-25 05:20] LABS: WHITE BLOOD COUNT 3.9 10^3/ul (4.8-10.8)
[2019-01-25 05:44] LABS: ANION GAP 5 (5-13); BLOOD UREA NITROGEN 5 mg/dl (7-20); CALCIUM 8.4 mg/dl (8.4-10.2); CARBON DIOXIDE 23 mmol/L (21-31); CHLORIDE 111 mmol/L (97-110); CREATININE 1.05 mg/dl (0.61-1.24); Estimated GFR > 60 mL/min (>60); GLUCOSE 87 mg/dl (70-220); MAGNESIUM 1.3 mg/dl (1.7-2.5); POTASSIUM 3.1 mmol/L (3.5-5.1); SODIUM 139 mmol/L (135-144)
[2019-01-25] MEDS ORDERED: POTASSIUM CHLORIDE 100 ML IVPB (07:00)
[2019-01-25] MEDS: FAMOTIDINE 20 MG TAB PO (08:02)
[2019-01-25] MEDS: NEUTRA-PHOS 250 MG PACKET PO ×2 (08:02→20:21)
[2019-01-25] MEDS: SILVER SULFADIAZINE 1% 25 GM CR TOP (08:03)
[2019-01-25] MEDS: METOPROLOL 25 MG TAB PO ×2 (08:03→20:22)
[2019-01-25] MEDS: POTASSIUM CHLORIDE (SR) 10 MEQ TAB PO ×2 (08:47→12:25)
[2019-01-25] MEDS ORDERED: MAGNESIUM SULFATE 3 GM in DEXTROSE 5% 100 ML IVPB (09:00)
[2019-01-25] MEDS: MAGNESIUM SULFATE 3 GM in DEXTROSE 5% 100 ML IVPB (09:30)
[2019-01-25] MEDS: ATORVASTATIN 20 MG TAB PO (20:22)
[2019-01-26 05:47] LABS: MAGNESIUM 1.7 mg/dl (1.7-2.5)
[2019-01-26 06:01] LABS: ANION GAP 4 (5-13); BLOOD UREA NITROGEN 7 mg/dl (7-20); CALCIUM 8.4 mg/dl (8.4-10.2); CARBON DIOXIDE 25 mmol/L (21-31); CHLORIDE 109 mmol/L (97-110); CREATININE 1.02 mg/dl (0.61-1.24); Estimated GFR > 60 mL/min (>60); GLUCOSE 93 mg/dl (70-220); POTASSIUM 3.2 mmol/L (3.5-5.1); SODIUM 138 mmol/L (135-144)
[2019-01-26] MEDS: NEUTRA-PHOS 250 MG PACKET PO (07:52)
[2019-01-26] MEDS: POTASSIUM CHLORIDE (SR) 20 MEQ TAB PO (07:52)
[2019-01-26] MEDS: FAMOTIDINE 20 MG TAB PO (07:52)
[2019-01-26] MEDS: SILVER SULFADIAZINE 1% 25 GM CR TOP (07:53)
[2019-01-26] MEDS: METOPROLOL 25 MG TAB PO (07:53)
== END 2019-01-26 17:30 | disposition home health service (06) | DRG 673 ==
LOC: 6WM 01-05 01:41 → FTE 19:46 → 6WM 01-05 10:39
PROC: 0DBB0ZZ Excision of Ileum, Open Approach (ICD-10-PCS; principal; 2019-01-19 11:22)
PROC: 0DN80ZZ Release Small Intestine, Open Approach (ICD-10-PCS; 2019-01-19 11:22)
PROC: 30233N1 Transfusion of Nonautologous Red Blood Cells into Peripheral Vein, Percutaneous Approach (ICD-10-PCS; 2019-01-19 11:22)
DX: N17.0 Acute kidney failure with tubular necrosis (principal); I50.33 Acute on chronic diastolic (congestive) heart failure; I13.0 Hypertensive heart and chronic kidney disease with heart failure and stage 1 through stage 4 chronic kidney disease, or unspecified chronic kidney disease; E87.1 Hypo-osmolality and hyponatremia; E87.3 Alkalosis; D68.69 Other thrombophilia; D62 Acute posthemorrhagic anemia; D64.9 Anemia, unspecified; E87.8 Other disorders of electrolyte and fluid balance, not elsewhere classified; E83.39 Other disorders of phosphorus metabolism; E86.9 Volume depletion, unspecified; E87.5 Hyperkalemia; G47.33 Obstructive sleep apnea (adult) (pediatric); I48.0 Paroxysmal atrial fibrillation; N18.9 Chronic kidney disease, unspecified; R33.8 Other retention of urine; R94.31 Abnormal electrocardiogram [ECG] [EKG]; Z93.2 Ileostomy status; Z92.21 Personal history of antineoplastic chemotherapy; Z90.49 Acquired absence of other specified parts of digestive tract; Z85.038 Personal history of other malignant neoplasm of large intestine; Z86.718 Personal history of other venous thrombosis and embolism; Z87.891 Personal history of nicotine dependence
CPT/HCPCS: 36430; 71045; 74280; 76775; 80048; 80053; 81001; 81003; 82043; 83735; 83880; 84100; 84155; 84300; 84484; 85025; 86850; 86900; 86901; 86920; 87086; 88304; 93005; 97162

== ENCOUNTER 2019-02-07 19:15 | Emergency (ER) | payer OTHER | END 2019-02-07 20:20 | disposition home or self-care (01) | LOC: E/R 19:15 | DX: Z48.01 Encounter for change or removal of surgical wound dressing (principal) | CPT/HCPCS: 99281; Z7502 ==